=== PATIENT | male | born 1975 | race Two or more races ===

== ENCOUNTER 2024-08-30 07:31 | Inpatient (IN) | payer MEDICAID, SELFPAY ==
[2024-08-30] VITALS (10 sets, daily range): BP systolic 116–154; BP diastolic 82–91; PULSE 66–90; RESP 14–98; TEMP 36.5–37.2; O2SAT 95–98; BMI 32.3
--- NOTE | 2024-08-30 07:36 | EKG_ITS ---
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
--- NOTE | 2024-08-30 07:50 | XR_ITS ---
Examination: PA lateral chest 2 views Technique: Upright PA lateral chest 2 views Exam date and time: August 30, 2024 0757 hrs. Indications: Midsternal chest pain beginning 12:00 AM Findings: Normal heart size Lungs are clear. Moderate thoracic spondylosis Impression: No active disease
--- NOTE | 2024-08-30 07:50 | PD.EDRME ---
Rapid Medical Screening Exam RME Arrival date/time: 08/30/24 07:31 49-year-old male presents emergency department for complaints of upper abdominal pain and chest pain today Chief Complaint: Chest Pain Vital signs: Vital Signs Temperature 99.0 F 08/30/24 07:45 Pulse Rate 75 08/30/24 07:45 Respiratory Rate 18 08/30/24 07:45 Blood Pressure 154/91 H 08/30/24 07:45 Pulse Oximetry (%) 97 08/30/24 07:45 Oxygen Delivery Method Room Air 08/30/24 07:45
[2024-08-30 08:59] LABS: Basophils % (Auto) 1 % (0-2.5); Eosinophils # (Auto) 0.4 Thou/mm3 (0.0-0.5); Eosinophils % (Auto) 7 % (0-10); Hematocrit 40.9 % (41.0-53.0); Hemoglobin 14.6 g/dL (13.5-16.0); Immature Granulocytes % (Auto) 0 % (0-0); Immature Granulocytes Auto 0.02 Thou/mm3 (0.00-0.00); Lymphocytes # (Auto) 1.7 Thou/mm3 (1.0-4.8); Lymphocytes % (Auto) 31 % (10-50); Mean Corpuscular HGB Conc 35.7 g/dl (31.0-37.0); Mean Corpuscular Hemoglobin 32.1 pg (25.0-35.0); Mean Corpuscular Volume 90 fL (80-100); Monocytes # (Auto) 0.5 Thou/mm3 (0.0-0.8); Monocytes % (Auto) 9 % (0-12); Neutrophils # (Auto) 2.7 Thou/mm3 (1.8-7.7); Neutrophils % (Auto) 52 % (37-80); Nucleated Red Blood Cell % 0 /100 WBC (0); Platelet Count 180 Thou/mm3 (140-440); RDW Standard Deviation 40.8 fL (35.1-43.9); Red Blood Count 4.55 Miln/mm3 (4.50-5.90); White Blood Count 5.3 Thou/mm3 (3.8-10.6)
[2024-08-30 09:13] LABS: Amphetamine/Methamp Scrn,U Negative (Negative); Barbiturate Screen,Urine Negative (Negative); Benzodiazepines Screen,Urine Negative (Negative); Benzoylecgonine Screen, Ur Negative (Negative); Fentanyl Screen,Urine Negative (Negative); Opiate Screen,Urine Negative (Negative); THC Screen,Urine Negative (Negative)
[2024-08-30 09:21] LABS: Alanine Aminotransferase 34 U/L (10-49); Albumin, Serum 4.3 gm/dL (3.5-5.0); Albumin/Globulin Ratio 1.4 (1.2-2.2); Alkaline Phosphatase 89 U/L (46-116); Anion Gap 8 (7-16); Aspartate Amino Transferase 25 U/L (0-34); BUN/Creatinine Ratio 19 Ratio (12-20); Bilirubin,Total 0.5 mg/dL (0.3-1.2); Blood Urea Nitrogen 15 mg/dL (9-23); Calcium 9.3 mg/dL (8.3-10.6); Calcium (Corrected) 9.3 mg/dL (8.5-10.1); Carbon Dioxide 27.7 mMol/L (20.0-31.0); Chloride 104 mMol/L (98-107); Creatinine (Component) 0.8 mg/dL (0.6-1.3); Estimated Creatinine Clearance 119.1 mL/min (>60); Glucose 116 mg/dL (74-106); Lipase 32 U/L (12-53); Osmolality,Calculated 281 (275-295); Sodium 140 mMol/L (136-145); Total Protein 7.3 gm/dL (5.7-8.2); eGFR > 60 See Note
[2024-08-30 09:23] LABS: Troponin I 0.086 ng/mL (0.0-0.045)
[2024-08-30 09:25] LABS: B-Type Natriuretic Peptide < 20 pg/mL (0-100)
--- NOTE | 2024-08-30 09:41 | EDNOTE_ITS ---
ED Chest Pain RME/HPI General Chief Complaint: Chest Pain Stated Complaint: CHEST PAIN SINCE 12AM MIDSTERNAL Arrival date/time: 08/30/24 07:31 RME / HPI RME / HPI narrative: 08/30/24 07:31 49-year-old male presents emergency department for complaints of upper abdominal pain and chest pain today DR. JOSE E HILLS ED EVALUATION: 49 year old male presents to the Emergency Department accompanied by his with complaint of mid chest pain that radiates to his back and bilateral shoulders today. Patient denies any similar chest pain in the past. He states he took Tylenol for the pain at home with little to no relief. Associated symptoms include mild shortness of breath, bilateral hand numbness and tingling, nausea, and vomiting x1 episode this morning. No diarrhea or constipation. No dysuria or other urinary symptoms. No known allergies. PMHx: Denies any PMHx, surgeries, daily medications, or known allergies. Social Hx: No tobacco, alcohol, or substance use. Related Data Allergies Allergy/AdvReac Type Severity Reaction Status Date / Time No Known Allergies Allergy Verified 08/30/24 07:34 Review of Systems Review of Systems Systems Reviewed: All systems reviewed, normal except as documented Past Medical History Social History SMOKING STATUS: Never smoker SUBSTANCE USE: does not use ALCOHOL: Never ED Exam Narrative Physical exam: GENERAL APPEARANCE: alert and oriented x 4, well-developed, well-nourished, no acute distress VITALS: All vitals were reviewed and the pulse ox is 97% on room air, which is normal according to my interpretation. HEENT: Normocephalic, atraumatic; pupils equal, round, reactive to light; EOMI; mucous membranes pink, moist; oropharynx clear NECK: Supple LUNGS: CTABL; no wheezes, no rales, no rhonchi HEART: Regular rate, regular rhythm; normal S1, S2; no murmurs ABDOMEN: non distended; normal BS; soft, no tenderness, no guarding, no rebound; no masses, no organomegaly, no hernia BACK: no CVA tenderness EXTREMITIES: atraumatic; no edema NEUROLOGIC: awake; alert and oriented x4; cranial nerves II-XII grossly intact; no focal sensory or motor deficits PSYCHIATRIC: appropriate mood and affect SKIN: warm, dry, normal color; no rashes Course Quality Measures none Orders Category Date Time Status EKG (ED ONLY) *Do not use* NOW Care 08/30/24 07:36 Completed EKG (ED Only) Stat Exams 08/30/24 07:36 Draft XR chest 2V Stat Exams 08/30/24 07:50 Completed B-Type Natriuretic Peptide Stat Lab 08/30/24 08:30 Completed CBC Stat Lab 08/30/24 08:30 Completed Comprehensive Metabolic Panel Stat Lab 08/30/24 08:30 Completed Drug Screen,Urine Stat Lab 08/30/24 08:45 Completed Lipase Stat Lab 08/30/24 08:30 Completed Troponin I Stat Lab 08/30/24 08:30 Completed Troponin I Stat Lab 08/30/24 11:45 Completed Aspirin Chew Med 08/30/24 10:20 Discontinued 324 mg PO X1 ONE Aspirin Chew Med 08/30/24 10:45 Discontinued 81 mg PO X1 ONE Vital Signs Vital signs: Vital Signs Temperature 99.0 F 08/30/24 07:45 Pulse Rate 75 08/30/24 07:45 Respiratory Rate 18 08/30/24 07:45 Blood Pressure 154/91 H 08/30/24 07:45 Pulse Oximetry (%) 97 08/30/24 07:45 Oxygen Delivery Method Room Air 08/30/24 07:45 Chest Pain MDM Narrative MDM Narrative:: I, Su Cleveland am scribing for and in the presence of Dr. Vincent. Patient data External records reviewed:: None (no previous visits) Clinical information provided by:: patient Social determinants that could affect healthcare access:: none Patient has the following chronic illnesses:: Denies any PMHx, surgeries, daily medications, or known allergies. How is presenting disease/condition affected by chronic disease/condition?: no chronic disease Evaluation data The following diagnostics were reviewed and interpreted by me:: lab results, radiology exam(s) and EKG tracing(s) (EKG#1: EKG at 0752 hours. Interpreted by me: sinus rhythm, rate 82, no acute ischemic changes) Lab and/or radiology exams considered but not ordered:: none Interpretation Summary: Procedure(s): XR chest 2V Accession Number(s): [id number] cc: Markie (BRUCE),Pedro BARRERA; David Lakhani MD; Jah Ruiz MD~ Examination: PA lateral chest 2 views Technique: Upright PA lateral chest 2 views Exam date and time: August 30, 2024 0757 hrs. Indications: Midsternal chest pain beginning 12:00 AM Findings: Normal heart size Lungs are clear. Moderate thoracic spondylosis Impression: No active disease Dictated By: Jah Ruiz MD Medications / Prescriptions Medications or Prescriptions considered but not ordered:: none Medication administrations:: Medication Administration History Discontinued Medications Aspirin (Aspirin 81 Mg Chew) 324 mg PO X1 ONE Stop: 08/30/24 10:21 Last Admin: 08/30/24 10:29 Dose: 324 mg Documented By: MAYLIN Aspirin (Aspirin 81 Mg Chew) 81 mg PO X1 ONE Stop: 08/30/24 10:46 Last Admin: 08/30/24 10:36 Dose: Not Given Documented By: MAYLIN Non-Admin Reason: 1x order for dropped pill see above if any Consultations Consultation(s) initiated? (list below): Yes Consultation #1 (Physician, Specialty, Details): Discussed test HPI, PMHx, lab, radiology results and/or management with hospitalist. Will admit for further evaluation and management. Accepts patient for admission. Time: 13:31 Diagnosis Chest Pain Differential Diagnosis: atypical chest pain, costochondritis, chest pain and biliary colic Most likely diagnosis given after review of the tests above:: NSTEMI Admission Indicated Admission indicated?: indicated Admission Request Was there a request for admission?: Yes Admission Attestation Admission request attestation: Discussed case with [] from Hospitalist service regarding admission. Discussed patients ED course, exam findings, labs, and radiology results. The Hospitalist [agrees,declines] to accept the patient for admission. Disposition Plan Disposition Plan: Discharge Discharge Attestation Discharge Attestation: The patient and all family members were given an opportunity to ask questions and understood the discharge instructions. Discharge instructions specifically effects, indications for sooner follow up or return to the emergency department, and the expected course of current diagnosis. Patient condition: Stable Discharge Plan Plan Patient Disposition: Admit Acute Care w/in Hospital Prescriptions/Referrals Referrals: David Lakhani MD [Primary Care Provider] - In 1 week Problem List Clinical Impression: Non-ST elevation UT (NSTEMI) Patient/Caregiver Discharge Instructions Print Language: Georgian Stand Alone Forms: Leigha Award Info., Patient Portal Info Letter
[2024-08-30] MEDS: ASPIRIN 81 MG CHEW 324 MG PO (10:29)
[2024-08-30 12:39] LABS: Troponin I 0.633 ng/mL (0.0-0.045)
--- NOTE | 2024-08-30 13:53 | PC.CC ---
Patient is a 49 year old male who presents to the hospital for Chest Pain. Mary HUYNH made [id number] contact with patient. ASW introduced self, role, and reason for visit. Patient appeared alert and oriented to self, location, and situation. Patient was pleasant and engaged in initial assessment. Patient confirmed information on demographics and reports to living at home with , Marguerite Ramires and 5 children. Patient reports his is his medical decision maker in the event he is unable to make his own medical decisions. At home patient ambulates independently and completes his own ADLs. Patient does not require any DME. Patient receives primary care with David Lakhani at [facility]. Upon discharge the patient plans to return home with his family. ambulatory services representative to follow up with any discharge needs.
--- NOTE | 2024-08-30 14:16 | ECHO_ITS ---
Transthoracic Echo Report Ht (in): 66 Wt (lb): 200 Exam Location: Portable Status: Emergency Payable Manager: SEBASTIAN Ware^^^^ Indications: Procedure Performed: BP: 130 / 88 HR: 84 Technical Quality: Fair MEASUREMENTS (Male / Female) Normal Values 2D ECHO LV Diastolic Diameter PLAX 4.3 cm 4.2 - 5.9 / 3.9 - 5.3 cm LV Systolic Diameter PLAX 2.9 cm IVS Diastolic Thickness 0.7 cm 0.6 - 1.0 / 0.6 - 0.9 cm LVPW Diastolic Thickness 0.8 cm 0.6 - 1.0 / 0.6 - 0.9 cm LV Relative Wall Thickness 0.4 LVOT Diameter 1.5 cm Aortic Root Diameter 3.4 cm LA Systolic Diameter LX 3.3 cm 3.0 - 4.0 / 2.7 - 3.8 cm LA Volume Index 15.7 cm?/m? 16 - 28 cm?/m? DOPPLER AV Peak Velocity 142.5 cm/s AV Peak Gradient 8.1 mmHg AV Mean Gradient 5.0 mmHg AV Velocity Time Integral 34.0 cm LVOT Peak Velocity 109.0 cm/s LVOT Peak Gradient 4.8 mmHg LVOT Velocity Time Integral 22.6 cm LVOT Cardiac Index 1607.3 cm?/min?m? AV Area Cont Eq vti 1.2 cm? AV Area Cont Eq pk 1.4 cm? MV Area PHT 3.6 cm? MR Peak Velocity 481.0 cm/s MR Peak Gradient 92.5 mmHg Mitral E Point Velocity 84.2 cm/s Mitral A Point Velocity 65.9 cm/s Mitral E to A Ratio 1.3 LV E' Lateral Velocity 13.8 cm/s Mitral E to LV E' Lateral Ratio 6.1 LV E' Septal Velocity 10.6 cm/s Mitral E to LV E' Septal Ratio 7.9 TR Peak Velocity 233.0 cm/s TR Peak Gradient 21.7 mmHg PV Peak Velocity 121.0 cm/s PV Peak Gradient 5.9 mmHg RVOT Peak Velocity 68.7 cm/s FINDINGS Left Ventricle Normal left ventricular size, wall thickness, systolic function with no obvious regional wall motion abnormalities. There is grade II diastolic dysfunction of the left ventricle (pseudonormal filling pattern). The left ventricular ejection fraction is normal, estimated at 55-60%. Right Ventricle The right ventricle is normal in size and systolic function. The estimated right ventricular systolic pressure, 24 mmHg. Left Atrium The left atrium is normal by two-dimensional, color flow and Doppler imaging with no structural abnormalities, no thrombus formation present. Right Atrium The right atrium is normal by two-dimensional imaging, color flow and Doppler imaging with no structural abnormalities, no thrombus formation present. Atrial Septum The interatrial septum appears normal with no evidence of a shunt. Aorta The aorta is normal by two-dimensional, color flow and Doppler interrogation. Mitral Valve Mild mitral annular calcification. [id number] mitral regurgitation. Aortic Valve Aortic valve sclerosis. Tricuspid Valve There is mild tricuspid valve regurgitation. Pulmonic Valve Trivial pulmonic valve regurgitation. Vessels The pulmonary artery appears normal. The inferior vena cava pulmonary and hepatic veins appear normal. Pericardium The pericardium is normal by two-dimensional imaging. There is no significant pericardial effusion. CONCLUSIONS Indication: NSTEMI and chest pain Normal LV size and low normal LV function with an EF of 50 to 55%. Mild hypokinesis noted in the apical lateral segments as well as the apex. Normal diastolic function. Normal RV size and function. Estimated RVSP normal. Mild MR with and TR with trace AI. No pericardial effusion or pleural effusion. IVC normal. Asif Altman (Electronically Signed) Final Date: 30 August 2024 20:23
[2024-08-30 15:16] LABS: Glucose Estimated Average 111 mg/dL (80-131); Hemoglobin A1C 5.5 % Hgb (4.8-6.0)
[2024-08-30 15:22] LABS: Partial Thromboplastin Time 28.7 Seconds (22.0-36.0)
[2024-08-30 15:26] LABS: C-Reactive Protein < 0.5 mg/dL (0.0-0.9); Magnesium 2.1 mg/dL (1.6-2.6); Phosphorous 3.4 mg/dL (2.4-5.1)
[2024-08-30] MEDS: ATORVASTATIN CALCIUM 10 MG TABLET 40 MG PO (15:43)
--- NOTE | 2024-08-30 16:08 | ESHP_ITS ---
<Statement entered by Jean Jason MD - 09/07/24 07:28> I reviewed above note and agree with findings and plans. I have also personally examined the patient with medicine team and went over assessment and plan with medical team including intern architect and resident physician. <Statement entered by Radha Gonzalez MD - 08/30/24 16:27> Patient is a 49-year-old male without significant past medical history presents to ED with chief complaints of substernal chest pain, radiates to the back, bilateral shoulders and neck, associated with shortness of breath, diaphoresis, nausea and 1 episode of vomiting. Patient stated that pain started yesterday, was on and off, however in the morning it became more consistent prompting him to present to ED for further evaluation. Patient denied any previous history of chest pain, any similar episodes in the past. Patient takes energy drinks, otherwise denies any illicit drug use. On presentation patient was hemodynamically stable, however labs revealed elevated troponin, which was uptrending, EKG revealed sinus rhythm,negative for any acute ST changes , chest x-ray was unremarkable. Patient was given loading dose of aspirin, cardiology was consulted, evaluated the patient, patient will be admitted for typical chest pain/ACS rule out. Patient will be started on heparin drip, high intensity atorvastatin will be given,, will follow-up with lipid panel, A1c, TSH. Patient will be n.p.o. after midnight, pending coronary artery cath tomorrow. I personally saw and examined the patient and discussed the assessment and plan with the entire medicine team, including my attending Dr. Jason, Radha Gonzalez M.D. PGY-2 Disclaimer: Despite multiple revisions, due to the dictation software being used, the document bellow may not be free of grammatical errors including phonetic/typographic errors. However, this does not deter from our commitment to providing health care in the patient's best interest in mind. Documentation for date of: 08/30/24 HPI History of Present Illness History of present illness: CC: Chest pain Patient is a 49-year-old male with a unremarkable past medical history who is presenting to the emergency room from home with a chief complaint of left chest pain that started approximately midnight on 08/30/2024. Patient stated he went to bed at approximately 10 PM the previous night without any discomfort and then was awakened by midnight secondary to pain 10 out of 10. No reproducable w/ deep palpation. Patient stated pain radiates to his neck towards his left jaw, across towards mitral apex, across right chest. Pain is not reproducible to deep palpation patient denied any cardiac history. Patient denied any GERD history. Patient denied any recent emesis. Patient denied any family history of cardiac. Patient denied any meth or cocaine use, or illicit drug use. Patient stated he does drink Venom (energy drink) at least once a day. Patient denied a past medical history of diabetes or hypertension. Denied any home medication Admitted on 08/30/2024 for ACS rule out with NSTEMI. PMH: None Past Surgical History: None Past Family History: Denied any family cardiac history Home Medication: None Social History: Denied THC Denied smoking history Denied Illicit drug use Denied Alcohol Use Allergies: None Code Status: Full Code Review of Systems Review of Systems Narrative Review of Systems: General appearance: NO weight change, NO fatigue, NO weakness, NO fever, NO chills, NO night sweats, No cough Skin: NO rash, NO itching, NO sores, NO moles HEENT: NO Trauma, NO nausea, NO vomiting, NO visual changes, NO blurry vision, NO double vision, NO tinnitus, NO vertigo, NO ear discharge, NO rhinorrhea, NO stuffiness, NO sneezing, NO allergy, NO epistaxis. NO Hoarseness, NO sore throat, NO swollen neck. Cardiac: NO Palpitations, NO dyspnea on exertion, NO orthopnea, NO paroxysmal nocturnal dyspnea, NO edema, YES chest pain radiating across entire chest and upper jaw as well as left arms Respiratory: NO Shortness of Breath, NO Wheezing, NO Cough, NO Sputum, NO hemoptysis GI:NO appetite, YES nausea, NO vomiting, NO dysphagia, NO changes in bowel frequency, NO stool color, NO diarrhea, NO constipation, NO hemetemesis, NO hemorrhoids, NO melena, NO hematechezia, NO abdominal pain, NO jaundice Renal: NO frequency, NO hesitancy, NO urgency, NO hematuria, NO nocturia, NO incontinence MSK: NO muscle weakness, NO gout, NO arthritis, NO muscle stiffness Neuro: NO headaches, NO tremors, NO weakness, NO paralysis, NO seizures, NO loss of consciousness, NO numbness. Hem: NO anemia, NO easy bruising/bleeding, NO petechiae, NO purpura Endo: NO heat/cold intolerance, NO excessive sweating, NO polyuria, NO polydipsia, NO polyphagia, NO thyroid problems, NO diabetes Pysch: NO mood, NO anxiety, NO depression Exam Vital Signs Temp Pulse Resp BP Pulse Ox O2 Del Method 98.5 F 78 20 130/88 H 98 Room Air 08/30/24 14:23 08/30/24 15:29 08/30/24 15:29 08/30/24 14:23 08/30/24 14:23 08/30/24 14:23 Narrative Exam General Appearance: Alert & Oriented X3, well-nourished male who is lying in bed in mild discomfort HEENT: Skull symmetrical and atraumatic. Conjunctivae pin and moist. Pupils equal, round, reactive to light and accommodation (PERRL). External ear without lesion or discharge. Straight, nares patient, mucosa pink, no discharge. No thyroid nodule appreciated. No cervical lymphadenopathy. Cardio: Normal Rate and Rhythm with S1 and S2 heart sounds. No murmurs or extra heart sounds auscultated. No bruits on carotid auscultation. No peripheral edema or cyanosis. Lungs: Symmetric with good expansion. Chest and back non-tender. Breath sounds vesicular without crackles, wheezing or rhonchi Abdomen: Non-tender, Non-distended, Normal Reactive Bowel Sounds Neuro: Alert, cooperative, oriented to person, place, and time. Speech clear. CN grossly intact. Upper motor strength 5/5 and Lower motor strength 5/5. Sensation intact. Results: Labs 08/30/24 08:30 08/30/24 08:30 Labs: Short CBC 08/30/24 Range/Units 08:30 WBC 5.3 (3.8-10.6) Thou/mm3 Hgb 14.6 (13.5-16.0) g/dL Hct 40.9 L (41.0-53.0) % Plt Count 180 (140-440) Thou/mm3 BMP 08/30/24 08:30 Sodium 140 Potassium 4.0 Chloride 104 Carbon Dioxide 27.7 BUN 15 Creatinine 0.8 Glucose 116 H Calcium 9.3 Cardiac Enzymes 08/30/24 08/30/24 Range/Units 08:30 11:45 Troponin I 0.086 H* 0.633 H* D (0.0-0.045) ng/mL Liver Function 08/30/24 Range/Units 08:30 Total Bilirubin 0.5 (0.3-1.2) mg/dL AST 25 (0-34) U/L ALT 34 (10-49) U/L Alkaline Phosphatase 89 (46-116) U/L Albumin 4.3 (3.5-5.0) gm/dL Quality Measures Quality Measures none Medications Home Medications and Allergies Allergies Allergy/AdvReac Type Severity Reaction Status Date / Time No Known Allergies Allergy Verified 08/30/24 07:34 Visit Medications Acetaminophen (Acetaminophen 325 Mg Tablet) 650 mg PO Q6H PRN PRN Reason: Pain 1-3 or Fever >100.3 Stop: 09/29/24 14:15 Hydrocodone Bitart/Acetaminophen (Hydrocodone/Apap 5/325 Tablet) 1 tab PO Q4HR PRN PRN Reason: PAIN SCALE 4-6 (Moderate Stop: 09/04/24 14:15 Aspirin (Aspirin Ec 81 Mg Tabec) 81 mg PO QDAY UMBERTO Stop: 09/30/24 08:59 Atorvastatin Calcium (Atorvastatin Calcium 20 Mg Tablet) 40 mg PO HS UMBERTO Stop: 09/30/24 20:59 Heparin Sodium/Dextrose (Heparin In D5w Ivpb) 25,000 unit in 250 mls @ 9.997 mls/hr IV .Q24H UMBERTO; Protocol Stop: 09/13/24 14:29 Morphine Sulfate (Morphine Sulf Inj 10 Mg/Ml Vial) 2 mg IVP Q2H PRN PRN Reason: PAIN SCALE 7-10 (Severe Stop: 09/04/24 14:15 Ondansetron HCl (Ondansetron Inj 2 Mg/Ml Inj 2 Ml) 4 mg IV Q6H PRN; Protocol PRN Reason: NAUSEA OR VOMITING Stop: 09/29/24 14:15 Pantoprazole Sodium (Pantoprazole Inj 40 Mg Vial) 40 mg IVP QDAY UMBERTO Stop: 09/30/24 08:59 Sennosides (Senna Tablet) 1 tab PO QDAY PRN; Protocol PRN Reason: constipation Stop: 09/29/24 14:15 Discontinued Medications Aspirin (Aspirin 81 Mg Chew) 324 mg PO X1 ONE Stop: 08/30/24 10:21 Last Admin: 08/30/24 10:29 Dose: 324 mg Aspirin (Aspirin 81 Mg Chew) 81 mg PO X1 ONE Stop: 08/30/24 10:46 Last Admin: 08/30/24 10:36 Dose: Not Given Atorvastatin Calcium (Atorvastatin Calcium 10 Mg Tablet) 40 mg PO X1 ONE Stop: 08/30/24 14:22 Last Admin: 08/30/24 15:43 Dose: 40 mg Heparin Sodium (Porcine) (Heparin Sod Inj 5000 Unit/Ml Vial) 4,000 unit IV X1 ONE; Protocol Stop: 08/30/24 14:23 Assessment & Plan Plan Patient is a 49-year-old male with a unremarkable past medical history who is presenting to the emergency room from home with a chief complaint of left chest pain who was admitted on 08/30/2024 for ACS rule out with NSTEMI. #ACS rule out #NSTEMI #Troponemia Patient has an unremarkable past medical history and denied hypertension or diabetes. Chest pain likely secondary to cardiac given elevated troponin, increased pain radiating across chest, towards apical apex, left jaw, and right shoulder. Positive for naseua. NSTEMI type I likely cause given no ST elevation. DDX:Patient denied any URI and CRP rate within normal limit vs illicit drug induce less likely given negative utox but patient does consume energy drinks vs less secondary to esophageal perforation as chest x-ray is unremarkable. A1c 5.5 Troponin 0.086, Troponin 0.633 Plan -NPO after midnight-->cath 08/31/2024 -Asprin 81 mg qday -Atorvastatin 80 mg qday -Heparin drip ACS -Trend Troponin, please D/C if peak -Pending ESR -Lipid Panel AM -PT/PTT -Pain management on board, norco and morphine -Zofran PRN -Protonix Health Maintenance: Disp: Pt is currently admitted to floors for further management of ACS rule out, awaiting cardiac cath lab radiology technologist FEN: Cardiac Diet-->NPO after midnight for cath DVT: Heparin, ACS drip Code: Full Code - The patient's plan was discussed with attending Dr. Jason and senior residents Dr. Carlos Rhodes MD PGY1 Internal Medicine
[2024-08-30] MEDS: HEPARIN SOD INJ 5000 UNIT/ML VIAL 4000 UNIT IV (16:39)
[2024-08-30] MEDS: Heparin/D5w 25K 250 ML Ivpb 25,000 UNIT/250 ML BAG 9.997 UNIT IV (16:40)
--- NOTE | 2024-08-30 16:46 | ESCONSULT_ITS ---
<Statement entered by Asif Altman MD - 08/31/24 00:52> I have personally seen and examined the patient separately on the above date of service and discussed the plan of care with the resident. I reviewed the resident Dr. Ricky Hinson consultation progress note and agree with the resident findings and plan in the note above and have also edited the documentation to reflect my findings and plan. A 49-year-old male with a past medical history of obesity, minimal smoking history of less than 1 pack years, family history of stroke presented to the emergency department for further evaluation of chest chest pain since the night of 2024. Patient apparently went will bed regularly and 9 at 10 PM but then he started having some chest pain which is substernal and radiating to his left arm as well as the left mandible and left neck and also at times the right shoulder. Patient continued to have intermittent chest pain over the last night and he tried to sleep again but could not sleep well he woke up around 4 AM for worsening chest discomfort and associated with some nausea and sweating also some shortness of breath and 1 episode of vomiting and incident to the emergency department around 7 AM for the same. Patient denies any kind of previous episodes of chest pain or chest pressure and never had any similar complaints or any cardiac history or pulmonary history. Denies any other shortness of breath and baseline or orthopnea or PND or dizziness or syncope or fall. Denies any kind of leg swelling or recent fever or chills. In the ED BP was elevated at 154 91 mmHg and heart rate of 74 bpm saturation of 97% on room air. EKG showed normal sinus rhythm without any acute ST-T changes. Chest x-ray showed no acute pathology. Labs showed normal CBC and CMP. A1c was 5.5 initial troponin was 0.08 and patient was placed in the ED to rule out ACS and repeat troponin came back at 0.6 and the cardiology was consulted for further evaluation of elevated troponins. Patient was given aspirin 325 mg in the emergency department after his pain subsided completely. Assessment and plan: 1. Acute coronary syndrome 2. NSTEMI type I 3. Obesity 4. Family history of stroke 5. Minimal smoking history with less than 1-pack-year when he was in his 20s As noted above patient presented with classic chest pain and chest pressure 8/10 associated with nausea vomiting diaphoresis radiating to the arms as well as the jaw. EKG did not show any acute ST-T changes or history of any ischemia. Initial troponin was 0.08 and increased to 0.6. OSBALDO score was 2 and 3 score was 69 points. Given his classic presentation and elevated troponins patient mostly has acute coronary syndrome and NSTEMI type I and recommended left heart cardiac catheterization. Aspirin to 25 mg x 1 given in the ED and recommend to continue aspirin 80 mg once daily. High intensity statin Crestor or Lipitor and beta-nadeen if blood pressure is permissible. Echocardiogram ordered to rule out any regional wall motion noted, check LV function RV function as well as diastolic function. TSH and lipid panel to be ordered. A1c 5.5%. Continue to trend troponins till the peak and. And down trending. Heparin drip as per ACS protocol. Keep patient n.p.o. overnight for left heart cardiac catheterization with possible PCI tomorrow morning. Patient explained risk medication alternatives of performing a left heart cardiac catheterization including the risk of bleeding, heart rate, stroke and in detail. Patient understand the risks and expresses willingness to undergo the procedure. Obtained consent from the patient. Patient counseled on healthy cardiac diet, regular exercise and losing weight Management of rest of the medical conditions as per primary team and other consultants. Thank you for the consult and allowing me to participate in the care of the patient. Cardiology will continue to follow. Asif Altman M.D. Interventional Cardiology HPI Data of Consult Requesting Physician: Jean Jason MD Admitting Provider: Jean Jason MD Attending Provider: Jean Jason MD Primary Care Provider: David Lakhani MD Consult Narrative History of present illness: Billy Ramires is a 49-year-old Vietnamese-speaking male without reported past medical history who presents to the ED on 08/30 with chest discomfort. States that he woke up at around midnight with 8/10, substernal chest pain with associated bilateral upper extremity weakness and discomfort in his left mandible and left neck. He walked around and discomfort subsided within 5 minutes and went back to sleep. At 4 AM he woke up again with the same chest discomfort that self resolved but with associated shortness of breath, nausea, and 1 episode of emesis. At 7 AM he was on his way to the hospital and experience chest discomfort again and self resolved. He has never experienced this type of chest discomfort in the past and denies orthopnea, PND, bilateral lower extremity edema, recent illnesses, pleuritic chest pain, pain in his back. In the ED, BP 154/91, heart rate 75, O2 97% on room air, afebrile. CBC unremarkable. CHEM panel showed troponin of 0.08 and uptrended to 0.6, pending further troponins, otherwise unremarkable. A1c 5.5%, pending lipid panel tomorrow morning. U tox negative. CXR negative for acute cardiopulmonary disease. EKG showed normal sinus rhythm with heart rate of 82, no ST changes or T wave abnormalities noted. In ED, given loading dose of aspirin 324 mg x 1, atorvastatin 40 mg x 1, and heparin drip started. PMHx: none Medications: none FHx: denies any cardiac history in parents, grandparents, or siblings SHx: smoked 1 to 2 packs of cigarettes per week between ages [age], does not drink alcohol, no illicit drug use; works at [employer] and lives in a home with his and 5 children PSHx: none cc:: cc: Jean Jason MD Review of Systems Review of Systems Systems Reviewed: All systems reviewed, normal except as documented Exam Vital Signs Temp Pulse Resp BP Pulse Ox O2 Del Method 98.5 F 78 20 130/88 H 98 Room Air 08/30/24 14:23 08/30/24 15:29 08/30/24 15:29 08/30/24 14:23 08/30/24 14:23 08/30/24 14:23 Narrative Exam General: AOx3, pleasant, no acute distress, able to speak full sentences HEENT: NC/AT, mucous membranes moist, bilateral sclera anicteric Cardiovascular: regular rate and rhythm, S1/S2 present, no murmurs appreciated Pulmonary: clear to auscultation bilaterally, no rales/rhonchi/wheezes Abdominal: soft, non-tender, non-distended, no rebound/guarding, normal bowel sounds present Musculoskeletal: normal ROM, no peripheral edema Skin: warm and dry, intact, no rashes Neuro: CN II-XII intact, no focal deficits Results Labs 08/30/24 08:30 08/30/24 08:30 Labs: Short CBC 08/30/24 Range/Units 08:30 WBC 5.3 (3.8-10.6) Thou/mm3 Hgb 14.6 (13.5-16.0) g/dL Hct 40.9 L (41.0-53.0) % Plt Count 180 (140-440) Thou/mm3 BMP 08/30/24 08:30 Sodium 140 Potassium 4.0 Chloride 104 Carbon Dioxide 27.7 BUN 15 Creatinine 0.8 Glucose 116 H Calcium 9.3 Cardiac Enzymes 08/30/24 08/30/24 Range/Units 08:30 11:45 Troponin I 0.086 H* 0.633 H* D (0.0-0.045) ng/mL Liver Function 08/30/24 Range/Units 08:30 Total Bilirubin 0.5 (0.3-1.2) mg/dL AST 25 (0-34) U/L ALT 34 (10-49) U/L Alkaline Phosphatase 89 (46-116) U/L Albumin 4.3 (3.5-5.0) gm/dL Quality Measures Quality Measures none Medications Home Medications and Allergies Allergies Allergy/AdvReac Type Severity Reaction Status Date / Time No Known Allergies Allergy Verified 08/30/24 07:34 Visit Medications Acetaminophen (Acetaminophen 325 Mg Tablet) 650 mg PO Q6H PRN PRN Reason: Pain 1-3 or Fever >100.3 Stop: 09/29/24 14:15 Hydrocodone Bitart/Acetaminophen (Hydrocodone/Apap 5/325 Tablet) 1 tab PO Q4HR PRN PRN Reason: PAIN SCALE 4-6 (Moderate Stop: 09/04/24 14:15 Aspirin (Aspirin Ec 81 Mg Tabec) 81 mg PO QDAY UMBERTO Stop: 09/30/24 08:59 Atorvastatin Calcium (Atorvastatin Calcium 20 Mg Tablet) 80 mg PO HS [facility] Stop: 09/30/24 20:59 Heparin Sodium/Dextrose (Heparin In D5w Ivpb) 25,000 unit in 250 mls @ 9.997 mls/hr IV .Q24H UMBERTO; Protocol Stop: 09/13/24 14:29 Last Admin: 08/30/24 16:40 Dose: 11.02 units/kg/hr, 9.997 mls/hr Morphine Sulfate (Morphine Sulf Inj 10 Mg/Ml Vial) 2 mg IVP Q2H PRN PRN Reason: PAIN SCALE 7-10 (Severe Stop: 09/04/24 14:15 Ondansetron HCl (Ondansetron Inj 2 Mg/Ml Inj 2 Ml) 4 mg IV Q6H PRN; Protocol PRN Reason: NAUSEA OR VOMITING Stop: 09/29/24 14:15 Pantoprazole Sodium (Pantoprazole Inj 40 Mg Vial) 40 mg IVP QDAY UMBERTO Stop: 09/30/24 08:59 Sennosides (Senna Tablet) 1 tab PO QDAY PRN; Protocol PRN Reason: constipation Stop: 09/29/24 14:15 Discontinued Medications Aspirin (Aspirin 81 Mg Chew) 324 mg PO X1 ONE Stop: 08/30/24 10:21 Last Admin: 08/30/24 10:29 Dose: 324 mg Aspirin (Aspirin 81 Mg Chew) 81 mg PO X1 ONE Stop: 08/30/24 10:46 Last Admin: 08/30/24 10:36 Dose: Not Given Atorvastatin Calcium (Atorvastatin Calcium 20 Mg Tablet) 40 mg PO HS UMBERTO Stop: 09/30/24 20:59 Atorvastatin Calcium (Atorvastatin Calcium 10 Mg Tablet) 40 mg PO X1 ONE Stop: 08/30/24 14:22 Last Admin: 08/30/24 15:43 Dose: 40 mg Heparin Sodium (Porcine) (Heparin Sod Inj 5000 Unit/Ml Vial) 4,000 unit IV X1 ONE; Protocol Stop: 08/30/24 14:23 Last Admin: 08/30/24 16:39 Dose: 4,000 unit Assessment & Plan Plan Billy Ramires is a 49-year-old Vietnamese-speaking male without reported past medical history who presents to the ED on 08/30 with chest discomfort. States that he woke up at around midnight with 8/10, substernal chest pain with associated bilateral upper extremity weakness and discomfort in his left mandible and left neck. He walked around and discomfort subsided within 5 minutes and went back to sleep. At 4 AM he woke up again with the same chest discomfort that self resolved but with associated shortness of breath, nausea, and 1 episode of emesis. At 7 AM he was on his way to the hospital and experience chest discomfort again and self resolved. He has never experienced this type of chest discomfort in the past and denies orthopnea, PND, bilateral lower extremity edema, recent illnesses, pleuritic chest pain, pain in his back. Admitted and cardiology consulted for further work-up and management of acute coronary syndrome. #Acute coronary syndrome rule-out #? NSTEMI Presents with multiple episodes of chest discomfort that self resolved, lasting 5 minutes each. Associated discomfort in bilateral upper extremities, left mandible, and left neck, nausea, vomiting, mild shortness of breath. No previous episodes reported, no cardiac family history. Distant smoking history. Troponins uptrending, current peak of 0.6, and EKG without ST changes or T wave abnormalities. A1c 5.5%. OSBALDO score for UA/NSTEMI: 2 points, 8% risk at 14 days of all-cause mortality, new or recurrent [place],or severe recurrent ischemia requiring urgent revascularization EUGENE ACS score: 69 points, 1.4% probablility of from admission to 6 months ? Heparin drip ? Aspirin 81 mg daily, atorvastatin 80 mg p.o. at bedtime ? N.p.o. after midnight, [facility] on 08/31 ? Follow-up cardiac echo ? Follow-up lipid panel ? Trend troponins ? Pain management: [place] 5, morphine 2 mg every 2 hours ----- Plan discussed with attending physician Dr. Anupama Hinson MD PGY-1 Internal Medicine
[2024-08-30 17:33] LABS: Sed Rate (ESR) 12 mm/hr (0-15)
[2024-08-30 18:48] LABS: Troponin I 2.004 ng/mL (0.0-0.045)
--- NOTE | 2024-08-30 19:08 | EKG_ITS ---
[facility] Test Date: 2024-08-30 Pat Name: DARSHAN RODRIGUEZ [facility] Gender[facility] Senior Foreman: AMARILYS : 1975 Requested By: Celeste Au Order Number: [id number] Reading MD: Celeste Au Measurements Intervals [place] Rate: 82 P: 49 [place]: 143 QRS: 44 QRSD: 90 T: 42 QT: 357 QTc: 417 Interpretive Statements SINUS RHYTHM Compared to ECG 08/30/2024 07:52:47 No significant changes /store/S0/[id number].pdf
--- NOTE | 2024-08-30 19:08 | PC.NURSE ---
DR. MESSINA NOTIFIED REGARDING 2/10 CP, STERNUM, TIGHT IN NATURE. MORPHINE FOR 7-10 CP PRN ORDERS. NO ORDERS FOR NITROGLYCERIN. TROPININ CRITICAL LAB RELAYED 2.004. PT ALREADY ON A HEPARIN DRIP. NEW ORDERS TO BE PLACED BY MD FOR EKG, MORPHINE, AND NITROGLYCERIN.
[2024-08-30] MEDS: NITROGLYCERIN 0.4 MG/HR PATCH.TD24 TOP (19:30)
[2024-08-31] VITALS (17 sets, daily range): BP systolic 99–150; BP diastolic 61–84; PULSE 67–103; RESP 14–97; TEMP 36.1–36.8; O2SAT 92–98
[2024-08-31] MEDS: HEPARIN SOD INJ 5000 UNIT/ML VIAL 4000 UNIT IV (00:27)
[2024-08-31 01:10] LABS: Troponin I 5.763 ng/mL (0.0-0.045)
--- NOTE | 2024-08-31 01:15 | EKG_ITS ---
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
[2024-08-31 05:37] LABS: Basophils % (Auto) 1 % (0-2.5); Eosinophils # (Auto) 0.4 Thou/mm3 (0.0-0.5); Eosinophils % (Auto) 5 % (0-10); Hematocrit 40.6 % (41.0-53.0); Hemoglobin 13.9 g/dL (13.5-16.0); Immature Granulocytes % (Auto) 0 % (0-0); Immature Granulocytes Auto 0.03 Thou/mm3 (0.00-0.00); Lymphocytes # (Auto) 1.8 Thou/mm3 (1.0-4.8); Lymphocytes % (Auto) 22 % (10-50); Mean Corpuscular HGB Conc 34.2 g/dl (31.0-37.0); Mean Corpuscular Hemoglobin 31.2 pg (25.0-35.0); Mean Corpuscular Volume 91 fL (80-100); Monocytes # (Auto) 0.7 Thou/mm3 (0.0-0.8); Monocytes % (Auto) 9 % (0-12); Neutrophils # (Auto) 5.4 Thou/mm3 (1.8-7.7); Neutrophils % (Auto) 64 % (37-80); Nucleated Red Blood Cell % 0 /100 WBC (0); Platelet Count 145 Thou/mm3 (140-440); RDW Standard Deviation 41.7 fL (35.1-43.9); Red Blood Count 4.45 Miln/mm3 (4.50-5.90); White Blood Count 8.5 Thou/mm3 (3.8-10.6)
[2024-08-31 06:33] LABS: Alanine Aminotransferase 35 U/L (10-49); Albumin/Globulin Ratio 1.5 (1.2-2.2); Alkaline Phosphatase 87 U/L (46-116); Anion Gap 9 (7-16); Aspartate Amino Transferase 57 U/L (0-34); BUN/Creatinine Ratio 14 Ratio (12-20); Bilirubin,Total 0.6 mg/dL (0.3-1.2); Blood Urea Nitrogen 11 mg/dL (9-23); Calcium 8.9 mg/dL (8.3-10.6); Calcium (Corrected) 8.9 mg/dL (8.5-10.1); Carbon Dioxide 26.5 mMol/L (20.0-31.0); Cardiac Risk Estimate 5.8 RATIO (4.0-6.7); Chloride 104 mMol/L (98-107); Cholesterol 227 mg/dL (132-200); Creatinine (Component) 0.8 mg/dL (0.6-1.3); Estimated Creatinine Clearance 117.4 mL/min (>60); Globulin 2.7 gm/dL (2.3-3.5); Glucose 121 mg/dL (74-106); HDL Cholesterol 39 mg/dL (40-60); LDL Cholesterol,Calculated 149 mg/dL (0-130); Magnesium 2.2 mg/dL (1.6-2.6); Osmolality,Calculated 277 (275-295); Potassium 3.9 mMol/L (3.4-5.1); Sodium 139 mMol/L (136-145); Thyroid Stimulating Hormone 1.95 uIU/mL (0.55-4.78); Total Protein 6.7 gm/dL (5.7-8.2); Triglycerides 193 mg/dL (30-150); eGFR > 60 See Note
[2024-08-31 06:36] LABS: Troponin I 5.875 ng/mL (0.0-0.045)
[2024-08-31 07:06] LABS: Partial Thromboplastin Time 49.3 Seconds (22.0-36.0)
[2024-08-31] MEDS: PANTOPRAZOLE INJ 40 MG VIAL IVP (08:21)
[2024-08-31] MEDS: HEPARIN SOD INJ 5000 UNIT/ML VIAL 2000 UNIT IVP (09:30)
[2024-08-31] MEDS: POTASSIUM CHL 10 mEq IVPB 10 MEQ/100 ML BAG 100 MEQ IV (09:59)
--- NOTE | 2024-08-31 10:19 | PD.RESPRO ---
Documentation for date of: 08/31/24 Subjective Subjective Interval history: No acute overnight events reported, though patient states he had another episode of chest discomfort for which he was given nitroglycerin patch that relieved his symptoms. Otherwise, upon evaluation patient denied shortness of breath, palpitations, lightheadedness, or chest discomfort at this time. Vital signs stable and telemetry reviewed that showed normal sinus rhythm with HR 70s-80s. Troponins plateaued at 5.8, most recent 2.5. Underwent left heart cath in early afternoon and found to have severe disease in the distal OM 2 which was not amenable to PCI as the vessel was around 1.5 mm and supplies around only 5% of the myocardium. Recommend to continue with heparin drip for one more day, ASA 81 mg, atorvastatin 80 mg, and begin beta nadeen as patient's BP and HR can tolerate. Exam Vital Signs Temp Pulse Resp BP Pulse Ox O2 Del Method 97.5 F 81 16 112/71 96 Room Air 08/31/24 08:00 08/31/24 08:00 08/31/24 08:00 08/31/24 08:00 08/31/24 08:00 08/31/24 04:00 Narrative Exam General: AOx3, pleasant, no acute distress, able to speak full sentences HEENT: NC/AT, mucous membranes moist, bilateral sclera anicteric Cardiovascular: regular rate and rhythm, S1/S2 present, no murmurs appreciated Pulmonary: clear to auscultation bilaterally, no rales/rhonchi/wheezes Abdominal: soft, non-tender, non-distended, no rebound/guarding, normal bowel sounds present Musculoskeletal: normal ROM, no peripheral edema Skin: warm and dry, intact, no rashes Neuro: CN II-XII intact, no focal deficits Objective Labs 08/31/24 04:15 08/31/24 04:15 Labs: Laboratory Results - last 24 hr 08/30/24 08/30/24 08/30/24 11:45 14:48 22:28 WBC RBC Hgb Hct MCV MCH MCHC RDW Std Deviation Plt Count Neut % (Auto) Lymph % (Auto) [place] % (Auto) Eos % (Auto) Baso % (Auto) Neut # (Auto) Lymph # (Auto) [place] # (Auto) Eos # (Auto) Baso # (Auto) Immature Gran # (Auto) Absolute Nucleated RBC Immature Gran % Nucleated RBC % ESR 12 APTT 28.7 34.0 Sodium Potassium Chloride Carbon Dioxide Anion Gap BUN Creatinine Estim Creat Clear Calc eGFR BUN/Creatinine Ratio Glucose Estimated Ave Glu mg/dL 111 Hemoglobin A1c 5.5 Calculated Osmolality Calcium Corrected Calcium Phosphorus 3.4 Magnesium 2.1 Total Bilirubin AST ALT Alkaline Phosphatase Troponin I 0.633 H* D 2.004 H* D C-Reactive Prot, Quant < 0.5 Total Protein Albumin Globulin Albumin/Globulin Ratio Triglycerides Cholesterol LDL Cholesterol, Calc HDL Cholesterol Cholesterol/HDL Ratio TSH 08/31/24 08/31/24 08/31/24 00:00 04:15 06:36 WBC 8.5 D RBC 4.45 L Hgb 13.9 Hct 40.6 L MCV 91 MCH 31.2 MCHC 34.2 RDW Std Deviation 41.7 Plt Count 145 D Neut % (Auto) 64 Lymph % (Auto) 22 [place] % (Auto) 9 Eos % (Auto) 5 Baso % (Auto) 1 Neut # (Auto) 5.4 Lymph # (Auto) 1.8 [place] # (Auto) 0.7 Eos # (Auto) 0.4 Baso # (Auto) 0.0 Immature Gran # (Auto) 0.03 H Absolute Nucleated RBC 0.00 Immature Gran % 0 Nucleated RBC % 0 ESR APTT 49.3 H D Sodium 139 Potassium 3.9 Chloride 104 Carbon Dioxide 26.5 Anion Gap 9 BUN 11 Creatinine 0.8 Estim Creat Clear Calc 117.4 eGFR > 60 BUN/Creatinine Ratio [address] Glu mg/dL Hemoglobin A1c Calculated Osmolality 277 Calcium 8.9 Corrected Calcium 8.9 Phosphorus 4.0 Magnesium 2.2 Total Bilirubin 0.6 AST 57 H ALT 35 Alkaline Phosphatase 87 Troponin I 5.763 H* D 5.875 H* C-Reactive Prot, Quant Total Protein 6.7 Albumin 4.0 Globulin 2.7 Albumin/Globulin Ratio 1.5 Triglycerides 193 H Cholesterol 227 H LDL Cholesterol, Calc 149 H HDL Cholesterol 39 L Cholesterol/HDL Ratio 5.8 TSH 1.95 Quality Measures Quality Measures none Assessment & Plan Assessment Current Active Medications: Generic Name Dose Route Start Last Admin Trade Name Freq PRN Reason Stop Dose Admin Acetaminophen 650 mg 08/30/24 14:16 Acetaminophen 325 Mg Tablet PO 09/29/24 14:15 Q6H PRN Pain 1-3 or Fever >100.3 Hydrocodone Bitart/Acetaminophen 1 tab 08/30/24 14:16 Hydrocodone/Apap 5/325 Tablet PO 09/04/24 14:15 Q4HR PRN PAIN SCALE 4-6 (Moderate Aspirin 81 mg 08/31/24 09:00 08/31/24 08:20 Aspirin Ec 81 Mg Tabec PO 09/30/24 08:59 Not Given QDAY UMBERTO Atorvastatin Calcium 80 mg 08/31/24 21:00 Atorvastatin Calcium 20 Mg Tablet PO 09/30/24 20:59 HS UMBERTO Heparin Sodium/Dextrose 25,000 unit in 250 mls @ 9.997 mls/hr 08/30/24 14:30 08/31/24 09:26 Heparin In D5w Ivpb IV 09/13/24 14:29 17.02 units/kg/hr .Q24H UMBERTO 15.44 mls/hr Titration Protocol 11.02 UNITS/KG/HR Morphine Sulfate 2 mg 08/30/24 14:16 Morphine Sulf Inj 10 Mg/Ml Vial IVP 09/04/24 14:15 Q2H PRN PAIN SCALE 7-10 (Severe Ondansetron HCl 4 mg 08/30/24 14:16 Ondansetron Inj 2 Mg/Ml Inj 2 Ml IV 09/29/24 14:15 Q6H PRN NAUSEA OR VOMITING Protocol Pantoprazole Sodium 40 mg 08/31/24 09:00 08/31/24 08:21 Pantoprazole Inj 40 Mg Vial IVP 09/30/24 08:59 40 mg QDAY UMBERTO Administration Potassium Chloride 20 meq 08/31/24 15:00 Potassium Chloride 20 Meq Tabcr PO 08/31/24 15:01 X1 ONE Sennosides 1 tab 08/30/24 14:16 Senna Tablet PO 09/29/24 14:15 QDAY PRN constipation Protocol Plan Billy Ramires is a 49-year-old Moroccan-speaking male without reported past medical history who presents to the ED on 08/30 with chest discomfort. States that he woke up at around midnight with 8/10, substernal chest pain with associated bilateral upper extremity weakness and discomfort in his left mandible and left neck. He walked around and discomfort subsided within 5 minutes and went back to sleep. At 4 AM he woke up again with the same chest discomfort that self resolved but with associated shortness of breath, nausea, and 1 episode of emesis. At 7 AM he was on his way to the hospital and experience chest discomfort again and self resolved. He has never experienced this type of chest discomfort in the past and denies orthopnea, PND, bilateral lower extremity edema, recent illnesses, pleuritic chest pain, pain in his back. Admitted and cardiology consulted for further work-up and management of acute coronary syndrome. #Acute coronary syndrome #NSTEMI Presents with multiple episodes of chest discomfort that self resolved, lasting 5 minutes each. Associated discomfort in bilateral upper extremities, left mandible, and left neck, nausea, vomiting, mild shortness of breath. No previous episodes reported, no cardiac family history. Distant smoking history. Troponins uptrending. EKG without ST changes or T wave abnormalities. A1c 5.5%. LDL 149, TGL 193, cholesterol 227, HDL 39. OSBALDO score for UA/NSTEMI: 2 points, 8% risk at 14 days of all-cause mortality, new or recurrent [place],or severe recurrent ischemia requiring urgent revascularization EUGENE ACS score: 69 points, 1.4% probablility of from admission to 6 months 08/31: LHC showed severe disease in the very small distal OM 2 vessel which was about 1.5 mm versus possible scad and decision was made to treat him medically as the lesion was not amenable to PCI and the involved myocardium is less than 5%. Rest of the arteries including the left main, RCA, LAD, diagonals, RPDA, RPL, OM1 all without any significant disease. - LVEF was normal at 60-65% and normal LVEDP of 15 mmHg. No transvalvular aortic gradient. ? Continue heparin drip for 24 hours to complete total 48 hours until tomorrow afternoon ? Continue aspirin 81 mg once daily, atorvastatin 80 mg ? Start Plavix 75 mg once daily ? Start beta-nadeen if blood pressure and heart rate permit, consider metoprolol tartate 25 mg PO BID and uptitrate as tolerated ? Follow-up cardiac echo ? Pain management: [place] 5, morphine 2 mg every 2 hours ----- Plan discussed with attending physician Dr. Anupama Hinson MD PGY-1 Internal Medicine Attending Provider Attestation/Addendum I have personally seen and examined the patient separately on the above date of service and discussed the plan of care with the resident. I reviewed the resident Dr. Ricky Hinson consultation progress note and agree with the resident findings and plan in the note above and have also edited the documentation to reflect my findings and plan. Asif Altman M.D. Interventional Cardiology
[2024-08-31] MEDS: ASPIRIN EC 81 MG TABEC PO (11:32)
--- NOTE | 2024-08-31 13:45 | ESPR_ITS ---
<Statement entered by Jean Jason MD - 09/07/24 07:28> I reviewed above note and agree with findings and plans. I have also personally examined the patient with medicine team and went over assessment and plan with medical team including internal control analyst and resident physician. Documentation for date of: 08/31/24 Patient evaluated bedside, admission diagnoses NSTEMI s/p cardiac cath, coronary angiogram showed single-vessel coronary artery disease versus possible scad, not amenable to PCI, cardiology recommended starting patient with antiplatelets aspirin,, statin, and Lipitor, in addition to beta-nadeen if BP allows. Started the patient on aspirin and metoprolol tartrate 12.5 mg twice daily, will continue heparin drip till tomorrow, and Plavix and statin to be continued on discharge. Anticipate discharge in next 24 hours. Patient evaluated and examined at the bedside, plan of care discussed with rest of the team including my attending physician, except as noted. Quresh PGY2 Subjective Subjective Interval history: Overnight patient complained of chest pain 10 out of 10 with elevated bated troponins continue to increased. EKG did not show ST elevation. Morphine on board. Nitroglycerin patch added which improved pain control. Patient is scheduled for cath today. Patient denied chest pain and shortness of breath. Metoprolol tartrate started 12.5 mg twice daily. Exam Vital Signs Temp Pulse Resp BP Pulse Ox O2 Del Method 98.1 F 87 14 150/84 H 97 Room Air 08/31/24 12:15 08/31/24 12:15 08/31/24 12:15 08/31/24 12:15 08/31/24 12:15 08/31/24 12:15 Objective Objective Narrative Objective Narrative: General Appearance: Alert & Oriented X3, well-nourished male who is lying in bed in NO acute discomfort HEENT: Skull symmetrical and atraumatic. Conjunctivae pin and moist. Pupils equal, round, reactive to light and accommodation (PERRL). External ear without lesion or discharge. Straight, nares patient, mucosa pink, no discharge. No thyroid nodule appreciated. No cervical lymphadenopathy. Cardio: Normal Rate and Rhythm with S1 and S2 heart sounds. No murmurs or extra heart sounds auscultated. No bruits on carotid auscultation. No peripheral edema or cyanosis. Lungs: Symmetric with good expansion. Chest and back non-tender. Breath sounds vesicular without crackles, wheezing or rhonchi Abdomen: Non-tender, Non-distended, Normal Reactive Bowel Sounds Neuro: Alert, cooperative, oriented to person, place, and time. Speech clear. CN grossly intact. Upper motor strength 5/5 and Lower motor strength 5/5. Sensation intact. Labs 09/01/24 06:45 09/01/24 06:45 Labs: Laboratory Results - last 24 hr 08/30/24 08/30/24 08/31/24 14:48 22:28 00:00 WBC RBC Hgb Hct MCV MCH MCHC RDW Std Deviation Plt Count Neut % (Auto) Lymph % (Auto) [place] % (Auto) Eos % (Auto) Baso % (Auto) Neut # (Auto) Lymph # (Auto) [place] # (Auto) Eos # (Auto) Baso # (Auto) Immature Gran # (Auto) Absolute Nucleated RBC Immature Gran % Nucleated RBC % ESR 12 APTT 28.7 34.0 Sodium Potassium Chloride Carbon Dioxide Anion Gap BUN Creatinine Estim Creat Clear Calc eGFR BUN/Creatinine Ratio Glucose Estimated Ave Glu mg/dL 111 Hemoglobin A1c 5.5 Calculated Osmolality Calcium Corrected Calcium Phosphorus 3.4 Magnesium 2.1 Total Bilirubin AST ALT Alkaline Phosphatase Troponin I 2.004 H* D 5.763 H* D C-Reactive Prot, Quant < 0.5 Total Protein Albumin Globulin Albumin/Globulin Ratio Triglycerides Cholesterol LDL Cholesterol, Calc HDL Cholesterol Cholesterol/HDL Ratio TSH 08/31/24 08/31/24 04:15 06:36 WBC 8.5 D RBC 4.45 L Hgb 13.9 Hct 40.6 L MCV 91 MCH 31.2 MCHC 34.2 RDW Std Deviation 41.7 Plt Count 145 D Neut % (Auto) 64 Lymph % (Auto) 22 [place] % (Auto) 9 Eos % (Auto) 5 Baso % (Auto) 1 Neut # (Auto) 5.4 Lymph # (Auto) 1.8 [place] # (Auto) 0.7 Eos # (Auto) 0.4 Baso # (Auto) 0.0 Immature Gran # (Auto) 0.03 H Absolute Nucleated RBC 0.00 Immature Gran % 0 Nucleated RBC % 0 ESR APTT 49.3 H D Sodium 139 Potassium 3.9 Chloride 104 Carbon Dioxide 26.5 Anion Gap 9 BUN 11 Creatinine 0.8 Estim Creat Clear Calc 117.4 eGFR > 60 BUN/Creatinine Ratio [address] Glu mg/dL Hemoglobin A1c Calculated Osmolality 277 Calcium 8.9 Corrected Calcium 8.9 Phosphorus 4.0 Magnesium 2.2 Total Bilirubin 0.6 AST 57 H ALT 35 Alkaline Phosphatase 87 Troponin I 5.875 H* C-Reactive Prot, Quant Total Protein 6.7 Albumin 4.0 Globulin 2.7 Albumin/Globulin Ratio 1.5 Triglycerides 193 H Cholesterol 227 H LDL Cholesterol, Calc 149 H HDL Cholesterol 39 L Cholesterol/HDL Ratio 5.8 TSH 1.95 Quality Measures Quality Measures none Assessment & Plan Assessment Current Active Medications: Generic Name Dose Route Start Last Admin Trade Name Freq PRN Reason Stop Dose Admin Acetaminophen 650 mg 08/30/24 14:16 Acetaminophen 325 Mg Tablet PO 09/29/24 14:15 Q6H PRN Pain 1-3 or Fever >100.3 Hydrocodone Bitart/Acetaminophen 1 tab 08/30/24 14:16 Hydrocodone/Apap 5/325 Tablet PO 09/04/24 14:15 Q4HR PRN PAIN SCALE 4-6 (Moderate Aspirin 81 mg 08/31/24 09:00 08/31/24 11:32 Aspirin Ec 81 Mg Tabec PO 09/30/24 08:59 81 mg QDAY UMBERTO Administration Atorvastatin Calcium 80 mg 08/31/24 21:00 Atorvastatin Calcium 20 Mg Tablet PO 09/30/24 20:59 HS UMBERTO Heparin Sodium/Dextrose 25,000 unit in 250 mls @ 9.997 mls/hr 08/30/24 14:30 08/31/24 12:00 Heparin In D5w Ivpb IV 09/13/24 14:29 0 units/kg/hr .Q24H UMBERTO 0 mls/hr Titration Protocol 11.02 UNITS/KG/HR Metoprolol Tartrate 12.5 mg 08/31/24 15:00 Metoprolol Tartrate 25 Mg Tablet PO 09/30/24 14:59 BID UMBERTO Morphine Sulfate 2 mg 08/30/24 14:16 Morphine Sulf Inj 10 Mg/Ml Vial IVP 09/04/24 14:15 Q2H PRN PAIN SCALE 7-10 (Severe Ondansetron HCl 4 mg 08/30/24 14:16 Ondansetron Inj 2 Mg/Ml Inj 2 Ml IV 09/29/24 14:15 Q6H PRN NAUSEA OR VOMITING Protocol Pantoprazole Sodium 40 mg 08/31/24 09:00 08/31/24 08:21 Pantoprazole Inj 40 Mg Vial IVP 09/30/24 08:59 40 mg QDAY UMBERTO Administration Potassium Chloride 20 meq 08/31/24 15:00 Potassium Chloride 20 Meq Tabcr PO 08/31/24 15:01 X1 ONE Sennosides 1 tab 08/30/24 14:16 Senna Tablet PO 09/29/24 14:15 QDAY PRN constipation Protocol Plan Patient is a 49-year-old male with a unremarkable past medical history who is presenting to the emergency room from home with a chief complaint of left chest pain who was admitted on 08/30/2024 for ACS rule out with NSTEMI. #ACS rule out #NSTEMI #Troponemia Patient has an unremarkable past medical history and denied hypertension or diabetes. Chest pain likely secondary to cardiac given elevated troponin, increased pain radiating across chest, towards apical apex, left jaw, and right shoulder. Positive for naseua. NSTEMI type I likely cause given no ST elevation. DDX:Patient denied any URI and CRP rate within normal limit vs illicit drug induce less likely given negative utox but patient does consume energy drinks vs less secondary to esophageal perforation as chest x-ray is unremarkable. A1c 5.5 Troponin 0.086, Troponin 0.633 Plan -NPO after midnight-->cath 08/31/2024 -Asprin 81 mg qday -Atorvastatin 80 mg qday -Metoprolol Tartrate 25 mg BID, MAP >65 or BP <100/90 please stop -Heparin drip ACS -PT/PTT -Pain management on board, norco and morphine -Zofran PRN -Protonix Health Maintenance: Disp: Pt is currently admitted to floors for further management of ACS rule out, awaiting landscaping and groundskeeping laborer FEN:NPO after midnight for cath -->after cath resume cardiac diet DVT: Heparin, ACS drip Code: Full Code - The patient's plan was discussed with attending Dr. Jason and senior residents Dr. Dante Rhodes MD PGY1 Internal Medicine
[2024-08-31] MEDS: POTASSIUM CHLORIDE 20 mEq TABCR PO (16:59)
[2024-08-31 17:05] LABS: Partial Thromboplastin Time 35.9 Seconds (22.0-36.0)
--- NOTE | 2024-08-31 17:09 | PD.CARDCATH ---
Cardiac Cath Procedure Procedure Name Date of procedure:08/31/2024 LEAD DATA ENTRY OPERATOR: Asif Altman MD PROCEDURE PERFORMED: 1. Left heart cardiac catheterization including right, left coronary angiograms and left ventriculogram 2. Ultrasound-guided access of the right radial artery 3. Conscious sedation for 30 minutes. Procedure Narrative HISTORY AND INDICATIONS: A 49-year-old male with a past medical history of obesity, minimal smoking history of less than 1 pack years, family history of stroke presented to the emergency department for further evaluation of chest chest pain since the night of 08/29/2024. EKG showed no acute ST-T changes, but troponins peaked at 5.763 and urgent cardiac catheterization was recommended. Patient was explained the risk benefits and alternatives of performing a left heart cardiac catheterization including the risk of bleeding, heart attack, stroke and in detail and the agreeable for the procedure. Consent signed, placed in the chart and H&P updated. DESCRIPTION OF PROCEDURE: The patient was brought to the cardiac catheterization lab and all asceptic precautions were followed. Patient was given 1 Mg of Versed and 50 mcg of fentanyl for moderate conscious sedation. 2 mL of lidocaine was given in the right wrist. The right radial artery was accessed via the ultrasound guidance as well as micropuncture technique. A 6 [place] glide sheath was introduced. We then used a 5 [place] TIG 4 catheter to perform the left and right coronary angiograms as well as a left ventriculogram which showed the following findings. 1. Left ventricular ejection fraction was normal at 60 to 65% without any regional wall motion abnormalities. LVEDP was normal at 15 mmHg. There was no significant transvalvular aortic gradient. 2. Right dominant circulation 3. Left main artery is a large-caliber vessel without any significant stenosis. 4. LAD is a large sized artery with a medium size diagonal and without show any significant disease. 5. LCx is a large sized artery with medium OM1 and small to medium OM 2 with the severe disease in the very distal OM 2 which was less than 1.5 mm versus possible scad 6. RCA is a large artery with medium RPDA and RPL without any significant disease. A radial band was used to achieve the hemostasis of the right radial artery access. Patient will be monitored in the cardiac customer relations advisor for the next 2 to 3 hours and will be discharged home / telemetry later today if hemodynamically stable. Complications: None Specimens: None Blood loss: Estimated 5-10 ml Summary/findings: 1. NSTEMI: LHC showed severe disease in the very small distal OM 2 vessel which was about 1.5 mm versus possible scad and decision was made to treat him medically as the lesion was not amenable to PCI and the involved myocardium is less than 5%. Rest of the arteries including the left main, RCA, LAD, diagonals, RPDA, RPL, OM1 all without any significant disease. 2. LVEF was normal at 60-65% and normal LVEDP of 15 mmHg. No transvalvular aortic gradient. Recommendations: 1. Recommend aggressive medical treatment and continue heparin drip for another 24 hours to complete a total of 48 hours for the NSTEMI 2. Patient will need to be on aspirin 81 mg once daily, Plavix 75 mg once daily, Lipitor or Crestor high intensity statin and beta-nadeen if blood pressure permissible. 3. Aggressive risk factor modification. 4. Recommended no lifting more than 5 pounds for next 7-10 days and follow up in my office in 7 days. Asif Altman MD Interventional Cardiology.
[2024-08-31] MEDS: HEPARIN SOD INJ 1000 UNIT/ML VIAL 10 ML 4000 UNIT IV (18:04)
[2024-08-31] MEDS: Heparin/D5w 25K 250 ML Ivpb 25,000 UNIT/250 ML BAG 10.886 UNIT IV (18:06)
[2024-08-31 19:29] LABS: Troponin I 2.535 ng/mL (0.0-0.045)
[2024-08-31] MEDS: ATORVASTATIN CALCIUM 20 MG TABLET 80 MG PO (20:39)
[2024-08-31] MEDS: METOPROLOL TARTRATE 25 MG TABLET 12.5 MG PO (20:39)
[2024-09-01] VITALS (8 sets, daily range): BP systolic 97–118; BP diastolic 61–73; PULSE 74–99; RESP 16–19; TEMP 36.2–36.7; O2SAT 94–96; BMI 30.7
[2024-09-01 01:08] LABS: Partial Thromboplastin Time 33.6 Seconds (22.0-36.0)
[2024-09-01] MEDS: HEPARIN SOD INJ 5000 UNIT/ML VIAL 4000 UNIT IVP (01:28)
[2024-09-01 07:09] LABS: Basophils % (Auto) 0 % (0-2.5); Eosinophils # (Auto) 0.2 Thou/mm3 (0.0-0.5); Eosinophils % (Auto) 2 % (0-10); Hematocrit 40.3 % (41.0-53.0); Hemoglobin 13.8 g/dL (13.5-16.0); Immature Granulocytes % (Auto) 0 % (0-0); Immature Granulocytes Auto 0.02 Thou/mm3 (0.00-0.00); Lymphocytes # (Auto) 1.9 Thou/mm3 (1.0-4.8); Lymphocytes % (Auto) 22 % (10-50); Mean Corpuscular HGB Conc 34.2 g/dl (31.0-37.0); Mean Corpuscular Hemoglobin 31.6 pg (25.0-35.0); Mean Corpuscular Volume 92 fL (80-100); Monocytes % (Auto) 12 % (0-12); Neutrophils # (Auto) 5.4 Thou/mm3 (1.8-7.7); Neutrophils % (Auto) 64 % (37-80); Nucleated Red Blood Cell % 0 /100 WBC (0); Platelet Count 165 Thou/mm3 (140-440); RDW Standard Deviation 43.2 fL (35.1-43.9); Red Blood Count 4.37 Miln/mm3 (4.50-5.90); White Blood Count 8.4 Thou/mm3 (3.8-10.6)
[2024-09-01 07:30] LABS: INR 1.1 (0.9-1.3); Partial Thromboplastin Time 47.7 Seconds (22.0-36.0); Prothrombin Time 11.6 Seconds (9.0-12.2)
[2024-09-01 07:35] LABS: Alanine Aminotransferase 29 U/L (10-49); Albumin, Serum 4.3 gm/dL (3.5-5.0); Albumin/Globulin Ratio 1.5 (1.2-2.2); Alkaline Phosphatase 88 U/L (46-116); Anion Gap 7 (7-16); Aspartate Amino Transferase 29 U/L (0-34); BUN/Creatinine Ratio 15 Ratio (12-20); Bilirubin,Total 0.8 mg/dL (0.3-1.2); Blood Urea Nitrogen 12 mg/dL (9-23); Calcium 8.9 mg/dL (8.3-10.6); Calcium (Corrected) 8.9 mg/dL (8.5-10.1); Carbon Dioxide 27.2 mMol/L (20.0-31.0); Chloride 104 mMol/L (98-107); Creatinine (Component) 0.8 mg/dL (0.6-1.3); Estimated Creatinine Clearance 116.2 mL/min (>60); Globulin 2.8 gm/dL (2.3-3.5); Glucose 128 mg/dL (74-106); Magnesium 2.2 mg/dL (1.6-2.6); Osmolality,Calculated 277 (275-295); Phosphorous 3.5 mg/dL (2.4-5.1); Potassium 4.2 mMol/L (3.4-5.1); Sodium 138 mMol/L (136-145); Total Protein 7.1 gm/dL (5.7-8.2); eGFR > 60 See Note
[2024-09-01] MEDS: HEPARIN SOD INJ 5000 UNIT/ML VIAL 2000 UNIT IVP (07:47)
--- NOTE | 2024-09-01 07:54 | PD.RESPRO ---
Documentation for date of: 09/01/24 Patient evaluated bedside, admission diagnoses NSTEMI s/p cardiac cath, coronary angiogram showed single-vessel coronary artery disease versus possible scad, not amenable to PCI, cardiology recommended starting patient with antiplatelets aspirin,, statin, and Lipitor, in addition to beta-nadeen if BP allows. Started the patient on aspirin and metoprolol tartrate 12.5 mg twice daily, will continue heparin drip till tomorrow, and Plavix and statin to be continued on discharge. Anticipate discharge in next 24 hours. Patient evaluated and examined at the bedside, plan of care discussed with rest of the team including my attending physician, except as noted. Quresh PGY2 Exam Vital Signs Temp Pulse Resp BP Pulse Ox O2 Del Method 97.5 F 76 19 114/72 94 L Room Air 09/01/24 04:00 09/01/24 04:00 09/01/24 04:00 09/01/24 04:00 09/01/24 04:00 09/01/24 04:00 Objective Labs 09/01/24 06:45 09/01/24 06:45 Labs: Laboratory Results - last 24 hr 08/31/24 08/31/24 09/01/24 16:28 16:28 00:26 WBC RBC Hgb Hct MCV MCH MCHC RDW Std Deviation Plt Count Neut % (Auto) Lymph % (Auto) [place] % (Auto) Eos % (Auto) Baso % (Auto) Neut # (Auto) Lymph # (Auto) [place] # (Auto) Eos # (Auto) Baso # (Auto) Immature Gran # (Auto) Absolute Nucleated RBC Immature Gran % Nucleated RBC % PT INR APTT 35.9 D 33.6 Sodium Potassium Chloride Carbon Dioxide Anion Gap BUN Creatinine Estim Creat Clear Calc eGFR BUN/Creatinine Ratio Glucose Calculated Osmolality Calcium Corrected Calcium Phosphorus Magnesium Total Bilirubin AST ALT Alkaline Phosphatase Troponin I 2.500 H* D 2.535 H* Total Protein Albumin Globulin Albumin/Globulin Ratio 09/01/24 06:45 WBC 8.4 RBC 4.37 L Hgb 13.8 Hct 40.3 L MCV 92 MCH 31.6 MCHC 34.2 RDW Std Deviation 43.2 Plt Count 165 Neut % (Auto) 64 Lymph % (Auto) 22 [place] % (Auto) 12 Eos % (Auto) 2 Baso % (Auto) 0 Neut # (Auto) 5.4 Lymph # (Auto) 1.9 [place] # (Auto) 1.0 H Eos # (Auto) 0.2 Baso # (Auto) 0.0 Immature Gran # (Auto) 0.02 H Absolute Nucleated RBC 0.00 Immature Gran % 0 Nucleated RBC % 0 PT 11.6 INR 1.1 APTT 47.7 H D Sodium 138 Potassium 4.2 Chloride 104 Carbon Dioxide 27.2 Anion Gap 7 BUN 12 Creatinine 0.8 Estim Creat Clear Calc 116.2 eGFR > 60 BUN/Creatinine Ratio 15 Glucose 128 H Calculated Osmolality 277 Calcium 8.9 Corrected Calcium 8.9 Phosphorus 3.5 Magnesium 2.2 Total Bilirubin 0.8 AST 29 ALT 29 Alkaline Phosphatase 88 Troponin I Total Protein 7.1 Albumin 4.3 Globulin 2.8 Albumin/Globulin Ratio 1.5 Quality Measures Quality Measures none Assessment & Plan Assessment Current Active Medications: Generic Name Dose Route Start Last Admin Trade Name Freq PRN Reason Stop Dose Admin Acetaminophen 650 mg 08/30/24 14:16 Acetaminophen 325 Mg Tablet PO 09/29/24 14:15 Q6H PRN Pain 1-3 or Fever >100.3 Hydrocodone Bitart/Acetaminophen 1 tab 08/30/24 14:16 Hydrocodone/Apap 5/325 Tablet PO 09/04/24 14:15 Q4HR PRN PAIN SCALE 4-6 (Moderate Aspirin 81 mg 08/31/24 09:00 08/31/24 11:32 Aspirin Ec 81 Mg Tabec PO 09/30/24 08:59 81 mg QDAY UMBERTO Administration Atorvastatin Calcium 80 mg 08/31/24 21:00 08/31/24 20:39 Atorvastatin Calcium 20 Mg Tablet PO 09/30/24 20:59 80 mg HS UMBERTO Administration Clopidogrel Bisulfate 75 mg 09/01/24 09:00 Clopidogrel Bisulfate 75 Mg Tablet PO 10/01/24 08:59 QDAY UMBERTO Heparin Sodium/Dextrose 25,000 unit in 250 mls @ 9.997 mls/hr 08/30/24 14:30 09/01/24 07:48 Heparin In D5w Ivpb IV 09/01/24 14:29 18 units/kg/hr .Q24H UMBERTO 16.329 mls/hr Titration Protocol 11.02 UNITS/KG/HR Metoprolol Tartrate 12.5 mg 08/31/24 21:00 08/31/24 20:39 Metoprolol Tartrate 25 Mg Tablet PO 09/30/24 20:59 12.5 mg BID UMBERTO Administration Morphine Sulfate 2 mg 08/30/24 14:16 Morphine Sulf Inj 10 Mg/Ml Vial IVP 09/04/24 14:15 Q2H PRN PAIN SCALE 7-10 (Severe Ondansetron HCl 4 mg 08/30/24 14:16 Ondansetron Inj 2 Mg/Ml Inj 2 Ml IV 09/29/24 14:15 Q6H PRN NAUSEA OR VOMITING Protocol Pantoprazole Sodium 40 mg 08/31/24 09:00 08/31/24 08:21 Pantoprazole Inj 40 Mg Vial IVP 09/30/24 08:59 40 mg QDAY UMBERTO Administration Sennosides 1 tab 08/30/24 14:16 Senna Tablet PO 09/29/24 14:15 QDAY PRN constipation Protocol
[2024-09-01] MEDS: METOPROLOL TARTRATE 25 MG TABLET 12.5 MG PO ×2 (08:54→20:31)
[2024-09-01] MEDS: ASPIRIN EC 81 MG TABEC PO (08:55)
[2024-09-01] MEDS: CLOPIDOGREL BISULFATE 75 MG TABLET PO (08:55)
[2024-09-01] MEDS: PANTOPRAZOLE INJ 40 MG VIAL IVP (08:55)
--- NOTE | 2024-09-01 09:18 | ESPR_ITS ---
Documentation for date of: 09/01/24 Subjective Subjective Interval history: No acute overnight events noted. Seen and examined at bedside and patient denies any more episodes of chest discomfort, shortness of breath, palpitations, lightheadedness. Underwent left heart cath yesterday and found to have severe disease in the distal OM 2 which was not amenable to PCI as the vessel was around 1.5 mm and supplies around only 5% of the myocardium. Plan is to finish heparin drip for the day, ASA 81 mg, plavix 75 mg, atorvastatin 80 mg, beta nadeen as tolerated and follow-up outpatient within 1 week. Exam Vital Signs Temp Pulse Resp BP Pulse Ox O2 Del Method 97.6 F 77 18 118/70 95 Room Air 09/01/24 08:00 09/01/24 08:54 09/01/24 08:00 09/01/24 08:54 09/01/24 08:00 09/01/24 08:00 Narrative Exam General: AOx3, pleasant, no acute distress, able to speak full sentences HEENT: NC/AT, mucous membranes moist, bilateral sclera anicteric Cardiovascular: regular rate and rhythm, S1/S2 present, no murmurs appreciated Pulmonary: clear to auscultation bilaterally, no rales/rhonchi/wheezes Abdominal: soft, non-tender, non-distended, no rebound/guarding, normal bowel sounds present Musculoskeletal: normal ROM, no peripheral edema Skin: warm and dry, intact, no rashes Neuro: CN II-XII intact, no focal deficits Objective Labs 09/01/24 06:45 09/01/24 06:45 Labs: Laboratory Results - last 24 hr 08/31/24 08/31/24 09/01/24 16:28 16:28 00:26 WBC RBC Hgb Hct MCV MCH MCHC RDW Std Deviation Plt Count Neut % (Auto) Lymph % (Auto) [place] % (Auto) Eos % (Auto) Baso % (Auto) Neut # (Auto) Lymph # (Auto) [place] # (Auto) Eos # (Auto) Baso # (Auto) Immature Gran # (Auto) Absolute Nucleated RBC Immature Gran % Nucleated RBC % PT INR APTT 35.9 D 33.6 Sodium Potassium Chloride Carbon Dioxide Anion Gap BUN Creatinine Estim Creat Clear Calc eGFR BUN/Creatinine Ratio Glucose Calculated Osmolality Calcium Corrected Calcium Phosphorus Magnesium Total Bilirubin AST ALT Alkaline Phosphatase Troponin I 2.500 H* D 2.535 H* Total Protein Albumin Globulin Albumin/Globulin Ratio 09/01/24 06:45 WBC 8.4 RBC 4.37 L Hgb 13.8 Hct 40.3 L MCV 92 MCH 31.6 MCHC 34.2 RDW Std Deviation 43.2 Plt Count 165 Neut % (Auto) 64 Lymph % (Auto) 22 [place] % (Auto) 12 Eos % (Auto) 2 Baso % (Auto) 0 Neut # (Auto) 5.4 Lymph # (Auto) 1.9 [place] # (Auto) 1.0 H Eos # (Auto) 0.2 Baso # (Auto) 0.0 Immature Gran # (Auto) 0.02 H Absolute Nucleated RBC 0.00 Immature Gran % 0 Nucleated RBC % 0 PT 11.6 INR 1.1 APTT 47.7 H D Sodium 138 Potassium 4.2 Chloride 104 Carbon Dioxide 27.2 Anion Gap 7 BUN 12 Creatinine 0.8 Estim Creat Clear Calc 116.2 eGFR > 60 BUN/Creatinine Ratio 15 Glucose 128 H Calculated Osmolality 277 Calcium 8.9 Corrected Calcium 8.9 Phosphorus 3.5 Magnesium 2.2 Total Bilirubin 0.8 AST 29 ALT 29 Alkaline Phosphatase 88 Troponin I Total Protein 7.1 Albumin 4.3 Globulin 2.8 Albumin/Globulin Ratio 1.5 Quality Measures Quality Measures none Assessment & Plan Assessment Current Active Medications: Generic Name Dose Route Start Last Admin Trade Name Freq PRN Reason Stop Dose Admin Acetaminophen 650 mg 08/30/24 14:16 Acetaminophen 325 Mg Tablet PO 09/29/24 14:15 Q6H PRN Pain 1-3 or Fever >100.3 Hydrocodone Bitart/Acetaminophen 1 tab 08/30/24 14:16 Hydrocodone/Apap 5/325 Tablet PO 09/04/24 14:15 Q4HR PRN PAIN SCALE 4-6 (Moderate Aspirin 81 mg 08/31/24 09:00 09/01/24 08:55 Aspirin Ec 81 Mg Tabec PO 09/30/24 08:59 81 mg QDAY UMBERTO Administration Atorvastatin Calcium 80 mg 08/31/24 21:00 08/31/24 20:39 Atorvastatin Calcium 20 Mg Tablet PO 09/30/24 20:59 80 mg HS UMBERTO Administration Clopidogrel Bisulfate 75 mg 09/01/24 09:00 09/01/24 08:55 Clopidogrel Bisulfate 75 Mg Tablet PO 10/01/24 08:59 75 mg QDAY UMBERTO Administration Heparin Sodium/Dextrose 25,000 unit in 250 mls @ 9.997 mls/hr 08/30/24 14:30 09/01/24 07:48 Heparin In D5w Ivpb IV 09/01/24 14:29 18 units/kg/hr .Q24H UMBERTO 16.329 mls/hr Titration Protocol 11.02 UNITS/KG/HR Metoprolol Tartrate 12.5 mg 08/31/24 21:00 09/01/24 08:54 Metoprolol Tartrate 25 Mg Tablet PO 09/30/24 20:59 12.5 mg BID UMBERTO Administration Morphine Sulfate 2 mg 08/30/24 14:16 Morphine Sulf Inj 10 Mg/Ml Vial IVP 09/04/24 14:15 Q2H PRN PAIN SCALE 7-10 (Severe Ondansetron HCl 4 mg 08/30/24 14:16 Ondansetron Inj 2 Mg/Ml Inj 2 Ml IV 09/29/24 14:15 Q6H PRN NAUSEA OR VOMITING Protocol Pantoprazole Sodium 40 mg 08/31/24 09:00 09/01/24 08:55 Pantoprazole Inj 40 Mg Vial IVP 09/30/24 08:59 40 mg QDAY UMBERTO Administration Sennosides 1 tab 08/30/24 14:16 Senna Tablet PO 09/29/24 14:15 QDAY PRN constipation Protocol Plan Billy Ramires is a 49-year-old [place]-speaking male without reported past medical history who presents to the ED on 08/30 with chest discomfort. States that he woke up at around midnight with 8/10, substernal chest pain with associated bilateral upper extremity weakness and discomfort in his left mandible and left neck. He walked around and discomfort subsided within 5 minutes and went back to sleep. At 4 AM he woke up again with the same chest discomfort that self resolved but with associated shortness of breath, nausea, and 1 episode of emesis. At 7 AM he was on his way to the hospital and experience chest discomfort again and self resolved. He has never experienced this type of chest discomfort in the past and denies orthopnea, PND, bilateral lower extremity edema, recent illnesses, pleuritic chest pain, pain in his back. Admitted and cardiology consulted for further work-up and management of acute coronary syndrome. #Acute coronary syndrome #NSTEMI Presents with multiple episodes of chest discomfort that self resolved, lasting 5 minutes each. Associated discomfort in bilateral upper extremities, left mandible, and left neck, nausea, vomiting, mild shortness of breath. No previous episodes reported, no cardiac family history. Distant smoking history. Troponins uptrending. EKG without ST changes or T wave abnormalities. A1c 5.5%. LDL 149, TGL 193, cholesterol 227, HDL 39. OSBALDO score for UA/NSTEMI: 2 points, 8% risk at 14 days of all-cause mortality, new or recurrent NH,or severe recurrent ischemia requiring urgent revascularization EUGENE ACS score: 69 points, 1.4% probablility of from admission to 6 months Echo 08/30: Normal LV size, low-normal LV function, EF 50-55%. Mild hypokinesis in apical-lateral segments and apex. Normal diastolic function. Normal RV size and function. Estimated RVSP normal. Mild MR and TR with trace AI. No pericardial effusion or pleural effusion. IVC normal. 08/31: LHC showed severe disease in the very small distal OM 2 vessel which was about 1.5 mm versus possible scad and decision was made to treat him medically as the lesion was not amenable to PCI and the involved myocardium is less than 5%. Rest of the arteries including the left main, RCA, LAD, diagonals, RPDA, RPL, OM1 all without any significant disease. LVEF was normal at 60-65% and normal LVEDP of 15 mmHg. No transvalvular aortic gradient. ? Continue heparin drip for 24 hours to complete total 48 hours until afternoon ? Aspirin 81 mg once daily ? Atorvastatin 80 mg once daily ? Plavix 75 mg once daily ? Beta-nadeen if blood pressure and heart rate permit, consider metoprolol tartate 25 mg PO BID and uptitrate as tolerated ? Follow-up outpatient within 1 week ----- Plan discussed with attending physician Dr. Anupama Hinson MD PGY-1 Internal Medicine Attending Provider Attestation/Addendum I have personally seen and examined the patient separately on the above date of service and discussed the plan of care with the resident. I reviewed the resident Dr. Ricky Hinson consultation progress note and agree with the resident findings and plan in the note above and have also edited the documentation to reflect my findings and plan. Asif Altman M.D. Interventional Cardiology
--- NOTE | 2024-09-01 11:25 | PC.SS ---
rounding note: Patient has d/c orders for today. No d/c needs at this time.
--- NOTE | 2024-09-01 13:55 | ESPR_ITS ---
<Statement entered by Jean Jason MD - 09/08/24 08:54> I reviewed above note and agree with findings and plans. I have also personally examined the patient with medicine team and went over assessment and plan with medical team including digital intern and resident physician. Documentation for date of: 09/01/24 Senior resident attestation: Patient evaluated bedside, admission diagnoses NSTEMI s/p cardiac cath, coronary angiogram showed single-vessel coronary artery disease versus possible scad, not amenable to PCI, cardiology recommended starting patient with antiplatelets aspirin,, statin, and Lipitor, in addition to beta-nadeen if BP allows. Started the patient on aspirin and metoprolol tartrate 12.5 mg twice daily, s/p cath, with disease noted in the distal obtuse marginal artery but no stents placed. Heparin drip to be completed this evening. will discharge patient on Aspirin, Plavix, and Lipitor. Patient evaluated and examined at the bedside, plan of care discussed with rest of the team including my attending physician, except as noted. Quresh PGY2 Subjective Subjective Interval history: Overnight s/p cath, with disease noted in the distal obtuse marginal artery but no stents placed. Heparin drip to be completed this evening. Start Aspirin, Plavix, and Lipitor. Exam Vital Signs Temp Pulse Resp BP Pulse Ox O2 Del Method 97.7 F 84 18 111/67 96 Room Air 09/01/24 12:00 09/01/24 12:00 09/01/24 12:00 09/01/24 12:00 09/01/24 12:00 09/01/24 12:00 Narrative Exam General Appearance: Alert & Oriented X3, well-nourished male who is lying in bed in no acute distress HEENT: Skull symmetrical and atraumatic. Conjunctivae pin and moist. Pupils equal, round, reactive to light and accommodation (PERRL). External ear without lesion or discharge. Straight, nares patient, mucosa pink, no discharge. No thyroid nodule appreciated. No cervical lymphadenopathy. Cardio: Normal Rate and Rhythm with S1 and S2 heart sounds. No murmurs or extra heart sounds auscultated. No bruits on carotid auscultation. No peripheral edema or cyanosis. Lungs: Symmetric with good expansion. Chest and back non-tender. Breath sounds vesicular without crackles, wheezing or rhonchi Abdomen: Non-tender, Non-distended, Normal Reactive Bowel Sounds Neuro: Alert, cooperative, oriented to person, place, and time. Speech clear. CN grossly intact. Upper motor strength 5/5 and Lower motor strength 5/5. Sensation intact. Objective Labs 09/02/24 04:45 09/02/24 04:45 Labs: Laboratory Results - last 24 hr 08/31/24 08/31/24 09/01/24 16:28 16:28 00:26 WBC RBC Hgb Hct MCV MCH MCHC RDW Std Deviation Plt Count Neut % (Auto) Lymph % (Auto) [place] % (Auto) Eos % (Auto) Baso % (Auto) Neut # (Auto) Lymph # (Auto) [place] # (Auto) Eos # (Auto) Baso # (Auto) Immature Gran # (Auto) Absolute Nucleated RBC Immature Gran % Nucleated RBC % PT INR APTT 35.9 D 33.6 Sodium Potassium Chloride Carbon Dioxide Anion Gap BUN Creatinine Estim Creat Clear Calc eGFR BUN/Creatinine Ratio Glucose Calculated Osmolality Calcium Corrected Calcium Phosphorus Magnesium Total Bilirubin AST ALT Alkaline Phosphatase Troponin I 2.500 H* D 2.535 H* Total Protein Albumin Globulin Albumin/Globulin Ratio 09/01/24 06:45 WBC 8.4 RBC 4.37 L Hgb 13.8 Hct 40.3 L MCV 92 MCH 31.6 MCHC 34.2 RDW Std Deviation 43.2 Plt Count 165 Neut % (Auto) 64 Lymph % (Auto) 22 [place] % (Auto) 12 Eos % (Auto) 2 Baso % (Auto) 0 Neut # (Auto) 5.4 Lymph # (Auto) 1.9 [place] # (Auto) 1.0 H Eos # (Auto) 0.2 Baso # (Auto) 0.0 Immature Gran # (Auto) 0.02 H Absolute Nucleated RBC 0.00 Immature Gran % 0 Nucleated RBC % 0 PT 11.6 INR 1.1 APTT 47.7 H D Sodium 138 Potassium 4.2 Chloride 104 Carbon Dioxide 27.2 Anion Gap 7 BUN 12 Creatinine 0.8 Estim Creat Clear Calc 116.2 eGFR > 60 BUN/Creatinine Ratio 15 Glucose 128 H Calculated Osmolality 277 Calcium 8.9 Corrected Calcium 8.9 Phosphorus 3.5 Magnesium 2.2 Total Bilirubin 0.8 AST 29 ALT 29 Alkaline Phosphatase 88 Troponin I Total Protein 7.1 Albumin 4.3 Globulin 2.8 Albumin/Globulin Ratio 1.5 Quality Measures Quality Measures none Assessment & Plan Assessment Current Active Medications: Generic Name Dose Route Start Last Admin Trade Name Freq PRN Reason Stop Dose Admin Acetaminophen 650 mg 08/30/24 14:16 Acetaminophen 325 Mg Tablet PO 09/29/24 14:15 Q6H PRN Pain 1-3 or Fever >100.3 Hydrocodone Bitart/Acetaminophen 1 tab 08/30/24 14:16 Hydrocodone/Apap 5/325 Tablet PO 09/04/24 14:15 Q4HR PRN PAIN SCALE 4-6 (Moderate Aspirin 81 mg 08/31/24 09:00 09/01/24 08:55 Aspirin Ec 81 Mg Tabec PO 09/30/24 08:59 81 mg QDAY UMBERTO Administration Atorvastatin Calcium 80 mg 08/31/24 21:00 08/31/24 20:39 Atorvastatin Calcium 20 Mg Tablet PO 09/30/24 20:59 80 mg HS UMBERTO Administration Clopidogrel Bisulfate 75 mg 09/01/24 09:00 09/01/24 08:55 Clopidogrel Bisulfate 75 Mg Tablet PO 10/01/24 08:59 75 mg QDAY UMBERTO Administration Heparin Sodium/Dextrose 25,000 unit in 250 mls @ 9.997 mls/hr 08/30/24 14:30 09/01/24 07:48 Heparin In D5w Ivpb IV 09/01/24 14:29 18 units/kg/hr .Q24H UMBERTO 16.329 mls/hr Titration Protocol 11.02 UNITS/KG/HR Metoprolol Tartrate 12.5 mg 08/31/24 21:00 09/01/24 08:54 Metoprolol Tartrate 25 Mg Tablet PO 09/30/24 20:59 12.5 mg BID UMBERTO Administration Morphine Sulfate 2 mg 08/30/24 14:16 Morphine Sulf Inj 10 Mg/Ml Vial IVP 09/04/24 14:15 Q2H PRN PAIN SCALE 7-10 (Severe Ondansetron HCl 4 mg 08/30/24 14:16 Ondansetron Inj 2 Mg/Ml Inj 2 Ml IV 09/29/24 14:15 Q6H PRN NAUSEA OR VOMITING Protocol Pantoprazole Sodium 40 mg 08/31/24 09:00 09/01/24 08:55 Pantoprazole Inj 40 Mg Vial IVP 09/30/24 08:59 40 mg QDAY UMBERTO Administration Sennosides 1 tab 08/30/24 14:16 Senna Tablet PO 09/29/24 14:15 QDAY PRN constipation Protocol Plan Patient is a 49-year-old male with a unremarkable past medical history who is presenting to the emergency room from home with a chief complaint of left chest pain who was admitted on 08/30/2024 for ACS rule out with NSTEMI. #NSTEMI Type I #ACS ruled out #Troponemia Patient has an unremarkable past medical history and denied hypertension or diabetes. Chest pain likely secondary to cardiac given elevated troponin, increased pain radiating across chest, towards apical apex, left jaw, and right shoulder. Positive for naseua. NSTEMI type I likely cause given no ST elevation. DDX:Patient denied any URI and CRP rate within normal limit vs illicit drug induce less likely given negative utox but patient does consume energy drinks vs less secondary to esophageal perforation as chest x-ray is unremarkable. A1c 5.5 Plan -Cardiac diet -Asprin 81 mg qday -Atorvastatin 80 mg qday -Metoprolol Tartrate 12.5 mg BID, MAP >65 or BP <100/90 please stop -Heparin drip, D/C this evening -Pain management on board, norco and morphine -Zofran PRN -Protonix Health Maintenance: Disp: Pt is currently admitted to floors for further management for NSTEMI I, and d/c heparin this evening FEN:cardiac diet DVT: Heparin, ACS drip Code: Full Code - The patient's plan was discussed with attending Dr. Jason and senior residents Dr. Dante Rhodes MD PGY1 Internal Medicine
[2024-09-01 14:49] LABS: Partial Thromboplastin Time 41.3 Seconds (22.0-36.0)
[2024-09-01] MEDS: ATORVASTATIN CALCIUM 20 MG TABLET 80 MG PO (20:30)
[2024-09-02] VITALS: BP 103/65; PULSE 76; PULSE 78; RESP 17; TEMP 36.4; O2SAT 97
[2024-09-02 04:00] VITALS: BP 113/70; PULSE 72; PULSE 76; RESP 18; TEMP 36.3; O2SAT 96
[2024-09-02 06:00] VITALS: BMI 31.0
[2024-09-02 06:05] LABS: Basophils % (Auto) 0 % (0-2.5); Eosinophils # (Auto) 0.2 Thou/mm3 (0.0-0.5); Eosinophils % (Auto) 3 % (0-10); Hematocrit 43.9 % (41.0-53.0); Hemoglobin 14.7 g/dL (13.5-16.0); Immature Granulocytes % (Auto) 0 % (0-0); Immature Granulocytes Auto 0.03 Thou/mm3 (0.00-0.00); Lymphocytes # (Auto) 1.9 Thou/mm3 (1.0-4.8); Lymphocytes % (Auto) 24 % (10-50); Mean Corpuscular HGB Conc 33.5 g/dl (31.0-37.0); Mean Corpuscular Hemoglobin 31.5 pg (25.0-35.0); Mean Corpuscular Volume 94 fL (80-100); Monocytes # (Auto) 0.9 Thou/mm3 (0.0-0.8); Monocytes % (Auto) 12 % (0-12); Neutrophils # (Auto) 4.8 Thou/mm3 (1.8-7.7); Neutrophils % (Auto) 60 % (37-80); Nucleated Red Blood Cell % 0 /100 WBC (0); Platelet Count 164 Thou/mm3 (140-440); RDW Standard Deviation 43.5 fL (35.1-43.9); Red Blood Count 4.66 Miln/mm3 (4.50-5.90)
[2024-09-02 06:34] LABS: Alanine Aminotransferase 32 U/L (10-49); Albumin, Serum 4.5 gm/dL (3.5-5.0); Albumin/Globulin Ratio 1.5 (1.2-2.2); Alkaline Phosphatase 88 U/L (46-116); Anion Gap 7 (7-16); Aspartate Amino Transferase 30 U/L (0-34); BUN/Creatinine Ratio 13 Ratio (12-20); Bilirubin,Total 0.7 mg/dL (0.3-1.2); Blood Urea Nitrogen 10 mg/dL (9-23); Calcium 9.2 mg/dL (8.3-10.6); Calcium (Corrected) 9.2 mg/dL (8.5-10.1); Carbon Dioxide 26.8 mMol/L (20.0-31.0); Chloride 105 mMol/L (98-107); Creatinine (Component) 0.8 mg/dL (0.6-1.3); Estimated Creatinine Clearance 116.9 mL/min (>60); Globulin 3.1 gm/dL (2.3-3.5); Glucose 113 mg/dL (74-106); Magnesium 2.2 mg/dL (1.6-2.6); Osmolality,Calculated 277 (275-295); Phosphorous 3.5 mg/dL (2.4-5.1); Potassium 4.4 mMol/L (3.4-5.1); Sodium 139 mMol/L (136-145); Total Protein 7.6 gm/dL (5.7-8.2); eGFR > 60 See Note
[2024-09-02 08:00] VITALS: BP 104/68; PULSE 70; PULSE 77; RESP 16; TEMP 36.1; O2SAT 97
[2024-09-02 09:15] VITALS: BP 104/68; PULSE 70
[2024-09-02] MEDS: PANTOPRAZOLE INJ 40 MG VIAL IVP (09:15)
[2024-09-02] MEDS: METOPROLOL TARTRATE 25 MG TABLET 12.5 MG PO (09:15)
[2024-09-02] MEDS: CLOPIDOGREL BISULFATE 75 MG TABLET PO (09:15)
[2024-09-02] MEDS: ASPIRIN EC 81 MG TABEC PO (09:15)
[2024-09-02 09:52] VITALS: PULSE 76; RESP 16; RESP 94
[2024-09-02 12:00] VITALS: BP 105/64; PULSE 77; RESP 18; TEMP 36.1; O2SAT 98
--- NOTE | 2024-09-02 13:39 | PD.IMPROG ---
Documentation for date of: 09/02/24 Subjective Subjective Interval history: No acute overnight events noted. Seen and examined at bedside and patient denies any more episodes of chest discomfort, shortness of breath, palpitations, lightheadedness. Underwent left heart cath yesterday and found to have severe disease in the distal OM 2 which was not amenable to PCI as the vessel was around 1.5 mm and supplies around only 5% of the myocardium. Finished 48 hrs heparin drip. Continue ASA 81 mg, plavix 75 mg, atorvastatin 80 mg, beta nadeen as tolerated and follow-up outpatient within 1 week. Exam Vital Signs Temp Pulse Resp BP Pulse Ox O2 Del Method 97.0 F 77 18 105/64 98 Room Air 09/02/24 12:00 09/02/24 12:00 09/02/24 12:00 09/02/24 12:00 09/02/24 12:00 09/02/24 12:00 Narrative Exam General: AOx3, pleasant, no acute distress, able to speak full sentences HEENT: NC/AT, mucous membranes moist, bilateral sclera anicteric Cardiovascular: regular rate and rhythm, S1/S2 present, no murmurs appreciated Pulmonary: clear to auscultation bilaterally, no rales/rhonchi/wheezes Abdominal: soft, non-tender, non-distended, no rebound/guarding, normal bowel sounds present Musculoskeletal: normal ROM, no peripheral edema Skin: warm and dry, intact, no rashes Neuro: CN II-XII intact, no focal deficits Objective Labs 09/02/24 04:45 09/02/24 04:45 Labs: Laboratory Results - last 24 hr 09/01/24 09/02/24 14:20 04:45 WBC 8.0 RBC 4.66 Hgb 14.7 Hct 43.9 MCV 94 MCH 31.5 MCHC 33.5 RDW Std Deviation 43.5 Plt Count 164 Neut % (Auto) 60 Lymph % (Auto) 24 [place] % (Auto) 12 Eos % (Auto) 3 Baso % (Auto) 0 Neut # (Auto) 4.8 Lymph # (Auto) 1.9 [place] # (Auto) 0.9 H Eos # (Auto) 0.2 Baso # (Auto) 0.0 Immature Gran # (Auto) 0.03 H Absolute Nucleated RBC 0.00 Immature Gran % 0 Nucleated RBC % 0 APTT 41.3 H Sodium 139 Potassium 4.4 Chloride 105 Carbon Dioxide 26.8 Anion Gap 7 BUN 10 Creatinine 0.8 Estim Creat Clear Calc 116.9 eGFR > 60 BUN/Creatinine Ratio 13 Glucose 113 H Calculated Osmolality 277 Calcium 9.2 Corrected Calcium 9.2 Phosphorus 3.5 Magnesium 2.2 Total Bilirubin 0.7 AST 30 ALT 32 Alkaline Phosphatase 88 Total Protein 7.6 Albumin 4.5 Globulin 3.1 Albumin/Globulin Ratio 1.5 Assessment & Plan A&P Narrative Billy Ramires is a 49-year-old Vietnamese-speaking male without reported past medical history who presents to the ED on 08/30 with chest discomfort. States that he woke up at around midnight with 8/10, substernal chest pain with associated bilateral upper extremity weakness and discomfort in his left mandible and left neck. He walked around and discomfort subsided within 5 minutes and went back to sleep. At 4 AM he woke up again with the same chest discomfort that self resolved but with associated shortness of breath, nausea, and 1 episode of emesis. At 7 AM he was on his way to the hospital and experience chest discomfort again and self resolved. He has never experienced this type of chest discomfort in the past and denies orthopnea, PND, bilateral lower extremity edema, recent illnesses, pleuritic chest pain, pain in his back. Admitted and cardiology consulted for further work-up and management of acute coronary syndrome. #Acute coronary syndrome #NSTEMI Presents with multiple episodes of chest discomfort that self resolved, lasting 5 minutes each. Associated discomfort in bilateral upper extremities, left mandible, and left neck, nausea, vomiting, mild shortness of breath. No previous episodes reported, no cardiac family history. Distant smoking history. Troponins uptrending. EKG without ST changes or T wave abnormalities. A1c 5.5%. LDL 149, TGL 193, cholesterol 227, HDL 39. OSBALDO score for UA/NSTEMI: 2 points, 8% risk at 14 days of all-cause mortality, new or recurrent OR,or severe recurrent ischemia requiring urgent revascularization EUGENE ACS score: 69 points, 1.4% probablility of from admission to 6 months Echo 08/30: Normal LV size, low-normal LV function, EF 50-55%. Mild hypokinesis in apical-lateral segments and apex. Normal diastolic function. Normal RV size and function. Estimated RVSP normal. Mild MR and TR with trace AI. No pericardial effusion or pleural effusion. IVC normal. 08/31: LHC showed severe disease in the very small distal OM 2 vessel which was about 1.5 mm versus possible scad and decision was made to treat him medically as the lesion was not amenable to PCI and the involved myocardium is less than 5%. Rest of the arteries including the left main, RCA, LAD, diagonals, RPDA, RPL, OM1 all without any significant disease. LVEF was normal at 60-65% and normal LVEDP of 15 mmHg. No transvalvular aortic gradient. - Finished 48 hrs heparin drip. ? Aspirin 81 mg once daily ? Atorvastatin 80 mg once daily ? Plavix 75 mg once daily ? Beta-nadeen if blood pressure and heart rate permit, consider metoprolol tartate 25 mg PO BID and uptitrate as tolerated ? Follow-up outpatient within 1 week Management of rest of the medical conditions as per primary team and other consultants. Thank you for the consult and allowing me to participate in the care of the patient. Cardiology will continue to follow. Asif Altman M.D. Interventional Cardiology Time Spent With Patient Time: Total time spent is greater than 50% in coordination of care (as documented) at patient's floor/unit and/or counseling patient:
--- NOTE | 2024-09-02 15:16 | ESDS_ITS ---
<Statement entered by Jean Jason MD - 09/08/24 12:56> I reviewed above note and agree with findings and plans. I have also personally examined the patient with medicine team and went over assessment and plan with medical team including digital marketing intern and resident physician. Planned Discharge Date 09/02/24 DS: Providers Provider Date of admission: 08/30/24 14:16 Primary care physician: Daivd Lakhani MD Admitting Provider: Jean Jason MD Attending Provider on Admission: Jean Jason MD Consults: 08/30/24 16:37 Consult to Cardiology Routine Comment: Consulting Provider: Asif Altman Instructions: Chest Pain & elevated troponin Attending Provider on DC: Radha Gonzalez MD Discharging Provider: Radha Gonzalez MD DS: Diagnosis Problem List Completed Was Problem List Reviewed/Reconciled?: Yes Hospital Course Hospital Course Hospital course: 49-year-old male without significant past medical history presents to ED with chief complaints of typical chest pain, located substernal, radiates to the back, neck and shoulder, associated with shortness of breath, diaphoresis, nausea and vomiting. On presentation patient was hemodynamically stable, EKG did not reveal any acute ST changes, however troponin was continues to uptrend. Patient was admitted for acute coronary syndrome treatment and management. Patient received ACS protocol treatment with aspirin, Plavix, heparin drip, high intensity atorvastatin, and had scheduled left heart catheterization. Summary/findings: 1. NSTEMI: LHC showed severe disease in the very small distal OM 2 vessel which was about 1.5 mm versus possible scad and decision was made to treat him medically as the lesion was not amenable to PCI and the involved myocardium is less than 5%. Rest of the arteries including the left main, RCA, LAD, diagonals, RPDA, RPL, OM1 all without any significant disease. 2. LVEF was normal at 60-65% and normal LVEDP of 15 mmHg. No transvalvular aortic gradient. During hospital stay patient condition significantly improved, without complication. Upon our evaluation patient was hemodynamically stable. Patient denied any shortness of breath, chest pain or any other associated symptoms. Patient will be discharged today home, continue with aspirin 81 mg daily, atorvastatin 80 at bedtime, continue with metoprolol 12.5 twice daily, Plavix 75 mg daily, follow-up close with cardiology in 1 to 2 weeks after discharge, follow-up outpatient with PCP in 1 week after discharge. All questions and concerns were addressed. Patient gave verbalized understanding. Patient care was discussed with attending physician Dr. Eren Gonzalez MD PGY-2 Time Spent with Patient Time attestation: Total time spent providing and/or coordinating discharge services:more than 30 min Time spent: Greater than 30 minutes Exam Vital Signs Temp Pulse Resp BP Pulse Ox O2 Del Method 97.0 F 77 18 105/64 98 Room Air 09/02/24 12:09/02/24 12:09/02/24 12:09/02/24 12:09/02/24 12:09/02/24 12:00 Narrative Exam GENERAL: no acute distress, AAO x3, well nourished. HEENT: Head AT/ NC. Mucous membranes moist. PERRL. NECK: Supple, no lymphadenopathy, no carotid bruits. CARDIOVASCULAR: RRR. Normal S1/S2, No m/r/g. No pitting edema of bilateral LEs. RESPIRATORY: CTAB. No wheezing, rhonchi, crackles. GASTROINTESTINAL: Abdomen soft, non tender no palpable masses. Bowel sounds present in all 4 quadrants. MUSCULOSKELETAL:? No cyanosis or edema, no visible joint swelling. NEUROLOGICAL: CN II-XII grossly intact. No focal deficits. Sensation intact, symmetric. PSYCHIATRIC: Awake and alert, not agitated, normal mood and affect. INTEGUMENTARY: No obvious rashes, no jaundice, normal turgor. Discharge Plan Plan Patient Disposition: HOME (Self Care) Patient condition on transfer: Stable Care Plan Goals: Instructions: -Please start new medication Asprin, Atorvastatin, Clopidogrel, and metoprolol for your heart -Please follow up with Dr. Altman, your sewing machine operator zipper within one week of discharge -Please follow up with your primary care provider within one week of discharge -If your symptoms worsen,please seek immediate medical attention and return to your nearest emergency room -If you do not have a primary care provider, you may follow up at the [facility] at [facility] [address], [place] [address], Instrucciones: - Comience a carol aspirina, atorvastatina, clopidogrel y metoprolol para el coraz?n. - Consulte con el Dr. Altman, stringer cardi?logo, dentro de [place] semana despu?s del erick. - Consulte con stringer m?dico de cabecera dentro de [place] semana despu?s del erick. - Si jose f s?ntomas empeoran, busque atenci?n m?dica inmediata y acuda a la mickey de urgencias m?s cercana. - Si no cuenta con un m?dico de cabecera, puede consultar con el centro de [facility] en [address], [address], [place] [address], tel?fono . Prescriptions/Referrals Prescriptions/Med Rec: New atorvastatin 20 mg Tablet 80 mg PO HS 30 Days Qty: 120 0RF clopidogrel 75 mg Tablet 75 mg PO QDAY 30 Days Qty: 30 0RF aspirin [Ecotrin Low Strength] 81 mg Tablet,Delayed Release (Dr/Ec) 81 mg PO QDAY 30 Days Qty: 30 0RF metoprolol tartrate 25 mg Tablet 12.5 mg PO BID 30 Days Qty: 30 0RF Referrals: Asif Altman MD [Physician] - David Lakhani MD [Primary Care Provider] - Patient/Caregiver Discharge Instructions Discharge Activity: activity as tolerated Education Materials: Having Cardiac Catheterization, Cardiac Catheterization Dc, Preventing Surgical Site Infections, Procedural Sedation, Cardiac Cath Transradial Print Language: Vietnamese Activity Restrictions/Additional Instructions: Por favor llame celeste pronto deysi pueda al consultorio del Dr. Altman (cardi?logo) para programar [place] brittney de seguimiento dentro de [place] semana despu?s del erick del radha de hoy. N?kennedy de tel?fono: [phone] Direcci?n: [address], [address], [place], [address]. Es importante que tambien llame al consultorio de stringer doctor primario para programar [place] brittney de seguimiento dentro de 1 o 2 semanas despu?s del erick del radha de hoy. Stringer doctor de jeniffer podria hacer m?s recomendaciones sobre stringer estado de keyla general basado en los resultados de stringer procedimiento. NO opera ni maneje ningun vehiculo motorizado, equipo pesado, o maquinaria de ningun tipo en las siquientes 24 horas. NO realize ningun tipo de actividad que requieren que harleen completamente al erta/despierto en las siguientes 24 horas NO firme ningun documento que le require tener un entendimiento total de lo que esta firmando en las siguientes 24 horas NO realice ninguna actividad f?dahiana extenuante en los pr?ximos 5 d?as. NO doble ni tuerza la mu?eca eddie los pr?ximos 3 d?as. NO levante nada que pese igual o m?s de 5 libras con stringer brazo/mano derecha eddie los pr?ximos 3 d?as. Realice actividades ligeras solo con la mano/brazo derecho eddie los pr?ximos 3 d?as. Si experimenta estre?imiento, kelton muchos l?quidos, especialmente agua, si no est? contraindicado por stringer m?dico. Adem?s, a?ada alimentos ricos en fibra. Si el estre?imiento es persistente, hable con stringer m?dico sobre otras opciones que podr?an ayudarlo. Mantenga stringer presi?n arterial bajo control. Si kvng medicamentos para la presi?n arterial, contin?e gordy?ndolos si stringer m?dico no lo contraindica. Hacerlo ayuda a prevenir complicaciones posteriores, deysi el sangrado. [place] stringer medicamento nuevo o existente seg?n las indicaciones del m?dico. Si no hay cambios, contin?e tomando stringer medicina a stringer horario habitual. Despu?s de 3 d?as, comience a aumentar el nivel de actividad con stringer [place] gradualmente en los siguientes 5 d?as. Est? atento a signos de infecci?n tales deysi sensibilidad, enrojecimiento o drenaje en la mu?eca derecha. Si los hubiera, inf?rmelo inmediatamente a stringer m?dico de atenci?n primaria. Volver? a casa con la mu?eca derecha cubierta por dos vendajes diferentes, un vendaje transparente y [place] venda [place]. La envoltura [place] (El vendaje de color) debe retirarse dentro de las 24 horas posteriores a stringer colocaci?n. El vendaje transparente (Vendaje de plastic sobre la piel) debe retirarse dentro de las 48 horas posteriores a stringer colocaci?n. Si decide ducharse o ba?arse, NO SE RECOMIENDA EN LAS PRIMERAS 24 HORAS DESPU?S DEL PROCEDIMIENTO; mantenga el vendaje limpio y seco cubri?ndolo. O, si lo prefieres, dese un ba?o de esponja. Despues de phillip removido los vendajes del area quirurgica, puede limpiar el area con agua y jabon communes. No restriegue ni aplique hair presion en el area afectada para evitar possibles complicaciones deysi sangrado. Tambien es necesario que recuerde no aplicar ningun tipo de crema, talco, perfume or locion de nungun typo en el area quirurgica hasta que sane completamente (Aproximadament 5 cote despues de remover la gaza/vendaje) Si experimenta alg?n tipo de complicaci?n deysi dolor, cambio de color, cambio de temperatura, un hematoma que aumenta de rosalina?o y color, un bulto (dona o blando) que se desarrolla y aumenta de rosalina?o, entumecimiento o p?rdida de sensaci?n en stringer [place]/mu?eca derechos, dolor en el pecho o dificultad para respirar; POR FAVOR, VAYA INMEDIATAMENTE A LA MICKEY DE EMERGENCIA M?S CERCANA. Si tiene alguna otra pregunta o inquietud sobre el procedimiento de hoy; no dude en contactarnos al departamento de Project Management Advisor Es importante seguir [place] dieta saludable para el coraz?n. Evite los alimentos co n grasas saturadas y los alimentos y bebidas con az?car agregada. Consuma [place] dieta brandon equilibrada con muchas frutas frescas, verduras y cereales integrales si stringer proveedor de atenci?n primaria no lo contraindica. Elige agua para hidratarse frente a cualquier otro tipo de bebidas. Hable con stringer m?dico de cabecera para obtener m?s consejos sobre [place] dieta que se ajuste a jose f necesidades nutricionales corporales y un programa de ejercicio adecuado para mantener y mejorar stringer estado de keyla general. SIEMPRE SIGA/CONSIDERE LOS CONSEJOS M?DICOS DE STRINGER M?DICO DE ATENCI?N PRIMARIA ANTES DE REALIZAR CUALQUIER CAMBIO EN STRINGER DIETA O NIVEL DE ACTIVIDAD Si tiene alguna otra pregunta o inquietud sobre el procedimiento de hoy; no dude en contactarnos al departamento de Project Management Advisor Stand Alone Forms: Leigha Award Info., Patient Portal Info Letter Discharge Order Discharge Orders: Discharge (Routine); Ordered 09/02/24 Ordered By: Radha Gonzalez Quality Discharge Quality Measures VTE prophylaxis
== END 2024-09-02 13:35 | disposition home or self-care (01) | DRG 190 ==
LOC: SERX 14:22 → SERHOLD 14:33 → S2NX 18:09
PROVIDERS: Internal Medicine Cardiovascular Disease; Nurse Practitioner Primary Care; Admitting Provider Internal Medicine; Emergency Provider Emergency Medicine; PCP Family Medicine; Visit Provider Internal Medicine
PROC: 4A023N7 Measurement of Cardiac Sampling and Pressure, Left Heart, Percutaneous Approach (ICD-10-PCS; principal; 2024-08-31 11:15)
DX: I21.4 Non-ST elevation (NSTEMI) myocardial infarction (principal); E66.9 Obesity, unspecified; Z68.31 Body mass index [BMI] 31.0-31.9, adult; F17.210 Nicotine dependence, cigarettes, uncomplicated; Z79.899 Other long term (current) drug therapy; Z79.82 Long term (current) use of aspirin; Z82.3 Family history of stroke
CPT/HCPCS: 36415; 71046; 80053; 80061; 80307; 83036; 83690; 83735; 83880; 84100; 84443; 84484; 85025; 85610; 85652; 85730; 86140; 93005; 93306; 94762; 99152; 99153; 99285; A4649; C1887; C1894; J0171; J0461; J1643; J1644; J2250; J2310; J2371; J2470; J3010; J3480; J3490; Q9967; A9270